=== PATIENT | male | born 1980 | race Caucasian/White ===

== ENCOUNTER 2016-11-19 20:48 | Emergency (ER) | payer BC ==
--- NOTE | 2016-11-19 21:05 | EDDOCDS ---
Physician Documentation [facility] Name: Ana Storm Age: 36 yrs Sex: Male : 1980 Arrival Date: 11/19/2016 Time: 20:48 Bed 2 Private MD: Disposition: 11/19/16 21:04 Patient has left against medical advice. - Patients states they are going to Home/Self Care. - Condition is Stable. Medication Reconciliation, Local Pharmacy Hours form. Follow up: Дмитрий Hall MD; When: As soon as possible; Reason: Worsening of conditions. Historical: - Allergies: No known drug Allergies; - Home Meds: 1. Xanax 1 mg Oral tab Unknown 2. tramadol 50 mg Oral TbDL Unknown - PMHx: Hypertension; Substance Abuse; - PSHx: Appendectomy; - Social history: Smoking status: Patient uses tobacco products, current every day smoker. No barriers to communication noted, The patient speaks fluent [place]. - : The pt / caregiver states he / she is not on anticoagulants. Unable to Verify Home Med List with the patient / caregiver. - Exposure Risk Screening:: None identified. Vital Signs: 11/19 20:59 BP 152 / 98; Pulse 124; Resp 20; Temp 96.4(O); Weight 99.79 kg / 220 lbs (R); Height 5 nb2 ft. 8 in. (172.72 cm) (R); Pain 0/10; 20:59 Body Mass Index 33.45 (99.79 kg, 172.72 cm) nb2 Signatures: Verenice DyerRN RN af2 MTDD
--- NOTE | 2016-11-19 22:04 | EDDOCDS ---
Physician Documentation [facility] Name: Ana Storm Age: 36 yrs Sex: Male : 1980 Arrival Date: 11/19/2016 Time: 20:48 Bed D5 Private MD: Disposition: 11/19/16 21:04 Patient has left against medical advice. Impression: Poisoning by other opioids, accidental (unintentional). - Patients states they are going to Home/Self Care. - Condition is Stable. Medication Reconciliation, Local Pharmacy Hours form. Follow up: Дмитрий Hall MD; When: As soon as possible; Reason: Worsening of conditions. - Problem is new. - Symptoms are unchanged. Historical: - Allergies: No known drug Allergies; - Home Meds: 1. Xanax 1 mg Oral tab Unknown 2. tramadol 50 mg Oral TbDL Unknown - PMHx: Hypertension; Substance Abuse; - PSHx: Appendectomy; - Social history: Smoking status: Patient uses tobacco products, current every day smoker. No barriers to communication noted, The patient speaks fluent Bulgarian. - : The pt / caregiver states he / she is not on anticoagulants. Unable to Verify Home Med List with the patient / caregiver. - Exposure Risk Screening:: None identified. Vital Signs: 11/19 20:59 BP 152 / 98; Pulse 124; Resp 20; Temp 96.4(O); Weight 99.79 kg / 220 lbs (R); Height 5 nb2 ft. 8 in. (172.72 cm) (R); Pain 0/10; 20:59 Body Mass Index 33.45 (99.79 kg, 172.72 cm) nb2 MDM: 21:18 ED course: After examining patient, discussed with patient need for bloodwork, EKG, br1 chest Xray, cardiac monitoring. Patient refuses any further testing, refusing to stay in ED "I didn't even want to come". Explained risks, including and disability to patient. Patient verbalizes understanding. Patient is alert and oriented x 3. He denies SI, depression, or intentional overdose. He is clinically sober. He has signed out against medical advice, was able to hop off stretcher and immediately left the ED prior to receiving formal written discharge instructions. He was verbally directed to see a doctor of his choosing as soon as possible and was invited to return to the ED at any time if he changed his mind.. Signatures: Дмитрий Hall MD MD br1 Miriam Hennessy RN RN sls1 Verenice Dyer RN RN af2 MTDD
--- NOTE | 2016-11-19 22:04 | EDDOCDS ---
Nurse's Notes [facility] Name: Ana Storm Age: 36 yrs Sex: Male : 1980 Arrival Date: 11/19/2016 Time: 20:48 Bed D5 Private MD: Diagnosis: Poisoning by other opioids, accidental (unintentional) Presentation: 11/19 20:51 Presenting complaint: EMS states: pt found unresponsive, rr 4 per min. upon af2 administration of 0.4mg of Narcan administered, pt responsive, A&OX4. pt admits to taking normal home medications, drinking ETOH, and smoking marijuana. Suicide/Homicide risk assessment- the patient denies having any suicidal and/or homicidal ideations and does not present with any other emotional, behavioral or mental health complaints. 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 Transition of care: patient was not received from another setting of care. 20:51 Acuity: JOSE ROBERTO Level 3 af2 20:51 Method Of Arrival: Ambulance af2 Triage Assessment: 20:59 General: Appears in no apparent distress, Behavior is appropriate for age. Pain: Denies af2 pain. Pt Declines HIV testing. Historical: - Allergies: No known drug Allergies; - Home Meds: 1. Xanax 1 mg Oral tab Unknown 2. tramadol 50 mg Oral TbDL Unknown - PMHx: Hypertension; Substance Abuse; - PSHx: Appendectomy; - Social history: Smoking status: Patient uses tobacco products, current every day smoker. No barriers to communication noted, The patient speaks fluent Sinhala. - : The pt / caregiver states he / she is not on anticoagulants. Unable to Verify Home Med List with the patient / caregiver. - Exposure Risk Screening:: None identified. Assessment: 22:00 General: Pt and family in waiting room, pt refusing to be seen, family refusing to take sls1 pt home, spoke with family and pt at length to resolve the situation. Family voiced concerns that pt was not able to make decisions and refusing to take pt home, pt is awake and alert oriented to person place and time, physician felt pt appropriate to make decisions. Pt family refusing to leave with pt, cold mill supervisor called, per cold mill supervisor call PD, PD called and on scene. Social Work Consult: 21:29 LWBS/AMA AMA: Patient is refusing further stabilizing treatment at [facility], although cl offered treatment regardless of method of payment or ability to pay. Patient is aware that this action is being undertaken against the advice of the medical staff at [facility]. Pt. has capacity to understand the potential consequences of this choice. pt did notify ED staff. Patient / guardian did sign Refusal of Services form. Pt left before being seen by PSA. Vital Signs: 20:59 BP 152 / 98; Pulse 124; Resp 20; Temp 96.4(O); Weight 99.79 kg (R); Height 5 ft. 8 in. nb2 (172.72 cm) (R); Pain 0/10; 20:59 Body Mass Index 33.45 (99.79 kg, 172.72 cm) nb2 Vitals: 20:59 Log In Time N/A - ambulance arrival. 2 ED Course: 20:49 Verenice Dyer,RN is Primary Nurse. [facility] 20:49 Patient visited by Maribell Cosme, Eddy Current Inspector. [facility] 20:49 Patient visited by Jose Sharma PSA. cl 20:49 Patient moved to 2 [facility] 20:53 Дмитрий Hall MD is Attending Physician. br1 20:56 Triage Initiated af2 20:59 Patient visited by Stacy Dumont. nb2 20:59 Patient visited by Дмитрий Hall MD. br1 20:59 Placed in gown. Bed in low position. Call light in reach. Side rails up X2. Cardiac nb2 monitor on. Pulse ox on. NIBP on. 21:03 Дмитрий Hall MD is Referral Physician. af2 21:58 Patient moved to D5 [facility] Order Results: There are currently no results for this order. Outcome: 21:00 The patient is leaving AMA: AMA form signed, Notification of AMA status is made to the af2 charge nurse, the ED attending physician. 21:04 Patient left against medical advice. af2 21:04 Patient left the ED. af2 22:02 Patient left the ED. [facility] Signatures: Jose Sharma PSA PSA cl Дмитрий Hall MD MD br1 Miriam Hennessy RN RN sls1 Maribell Cosme, Eddy Current Inspector Unit [facility] Verenice Dyer RN RN af2 Stacy Dumont nb MTDD
[2016-11-20] MEDS ORDERED: [UNRECOGNIZED DRUG - CODE] EXT (00:57)
[2016-11-20] MEDS ORDERED: VITA50003 PO (00:57)
[2016-11-20] MEDS ORDERED: CLOT1CRE71 TOP (00:57)
[2016-11-20] MEDS ORDERED: OMEP20CA3 PO (00:57)
[2016-11-20] MEDS ORDERED: TRAM50TA2 PO (00:57)
[2016-11-20] MEDS ORDERED: XANA1TAB2 PO (00:57)
[2016-11-20] MEDS ORDERED: ADDE5TAB5 PO (00:57)
[2016-11-20] MEDS ORDERED: ADDERALL 5 MG TAB As Ordered ONE (08:54)
[2016-11-20] MEDS ORDERED: OXAZEPAM 10 MG CAP As Ordered ONE (09:41)
[2016-11-21] MEDS ORDERED: OXAZEPAM 10 MG CAP As Ordered ONE (05:34)
[2016-11-21] MEDS ORDERED: HEPARIN SOD (PORCINE) 5000 UNITS/ML VIAL As Ordered ONE (05:35)
--- NOTE | 2016-11-21 23:03 | EDDOCDS ---
Nurse's Notes [facility] Name: Ana Storm Age: 36 yrs Sex: Male : 1980 Arrival Date: 11/19/2016 Time: 20:48 Bed D5 Private MD: Diagnosis: Poisoning by other opioids, accidental (unintentional) Presentation: 11/19 20:51 Presenting complaint: EMS states: pt found unresponsive, rr 4 per min. upon af2 administration of 0.4mg of Narcan administered, pt responsive, A&OX4. pt admits to taking normal home medications, drinking ETOH, and smoking marijuana. Suicide/Homicide risk assessment- the patient denies having any suicidal and/or homicidal ideations and does not present with any other emotional, behavioral or mental health complaints. Status: Patient is not a branch services manager or dependent. Transition of care: patient was not received from another setting of care. 20:51 Acuity: JOSE ROBERTO Level 3 af2 20:51 Method Of Arrival: Ambulance af2 Triage Assessment: 20:59 General: Appears in no apparent distress, Behavior is appropriate for age. Pain: Denies af2 pain. Pt Declines HIV testing. Historical: - Allergies: No known drug Allergies; - Home Meds: 1. Xanax 1 mg Oral tab Unknown 2. tramadol 50 mg Oral TbDL Unknown - PMHx: Hypertension; Substance Abuse; - PSHx: Appendectomy; - Social history: Smoking status: Patient uses tobacco products, current every day smoker. No barriers to communication noted, The patient speaks fluent Faroese. - : The pt / caregiver states he / she is not on anticoagulants. Unable to Verify Home Med List with the patient / caregiver. - Exposure Risk Screening:: None identified. Assessment: 22:00 General: Pt and family in waiting room, pt refusing to be seen, family refusing to take sls1 pt home, spoke with family and pt at length to resolve the situation. Family voiced concerns that pt was not able to make decisions and refusing to take pt home, pt is awake and alert oriented to person place and time, physician felt pt appropriate to make decisions. Pt family refusing to leave with pt, supervisor sample preparation called, per supervisor sample preparation call PD, PD called and on scene. Social Work Consult: 21:29 LWBS/AMA AMA: Patient is refusing further stabilizing treatment at [facility], although cl offered treatment regardless of method of payment or ability to pay. Patient is aware that this action is being undertaken against the advice of the medical staff at [facility]. Pt. has capacity to understand the potential consequences of this choice. pt did notify ED staff. Patient / guardian did sign Refusal of Services form. Pt left before being seen by PSA. Vital Signs: 20:59 BP 152 / 98; Pulse 124; Resp 20; Temp 96.4(O); Weight 99.79 kg (R); Height 5 ft. 8 in. nb2 (172.72 cm) (R); Pain 0/10; 20:59 Body Mass Index 33.45 (99.79 kg, 172.72 cm) nb2 Vitals: 20:59 Log In Time N/A - ambulance arrival. 2 ED Course: 20:49 Verenice Dyer,RN is Primary Nurse. [facility] 20:49 Patient visited by Maribell Cosme, Gambreler Helper. [facility] 20:49 Patient visited by Jose Sharma PSA. cl 20:49 Patient moved to [facility] 20:53 Дмитрий Hall MD is Attending Physician. br1 20:56 Triage Initiated af2 20:59 Patient visited by Stacy Dumont. nb2 20:59 Patient visited by Дмитрий Hall MD. br1 20:59 Placed in gown. Bed in low position. Call light in reach. Side rails up X2. Cardiac nb2 monitor on. Pulse ox on. NIBP on. 21:03 Дмитрий Hall MD is Referral Physician. af2 21:58 Patient moved to [facility] 11/20 09:46 T-Sheet-- Draft Copy was scanned into [employer] and attached to record. gb 09:47 Refusal of Services was scanned into [employer] and attached to record. gb Attachments: 09:47 Refusal of Services gb Order Results: There are currently no results for this order. Outcome: 11/19 21:00 The patient is leaving AMA: AMA form signed, Notification of AMA status is made to the af2 charge nurse, the ED attending physician. 21:04 Patient left against medical advice. af2 21:04 Patient left the ED. af2 22:02 Patient left the ED. [facility] Signatures: Jose Sharma PSA PSA cl Massiel Chery Reg Reg gb Дмитрий Hall MD MD br1 Miriam Hennessy RN RN sls1 Maribell Cosme, Gambreler Helper Unit Verenice Burns RN RN af2 Stacy Dumont nb2 Chart Complete MTDD
--- NOTE | 2016-11-21 23:03 | EDDOCDS ---
Physician Documentation [facility] Name: Ana Storm Age: 36 yrs Sex: Male : 1980 Arrival Date: 11/19/2016 Time: 20:48 Bed D5 Private MD: Disposition: 11/19/16 21:04 Patient has left against medical advice. Impression: Poisoning by other opioids, accidental (unintentional). - Patients states they are going to Home/Self Care. - Condition is Stable. Medication Reconciliation, Local Pharmacy Hours form. Follow up: Дмитрий Hall MD; When: As soon as possible; Reason: Worsening of conditions. - Problem is new. - Symptoms are unchanged. Historical: - Allergies: No known drug Allergies; - Home Meds: 1. Xanax 1 mg Oral tab Unknown 2. tramadol 50 mg Oral TbDL Unknown - PMHx: Hypertension; Substance Abuse; - PSHx: Appendectomy; - Social history: Smoking status: Patient uses tobacco products, current every day smoker. No barriers to communication noted, The patient speaks fluent [place]ese. - : The pt / caregiver states he / she is not on anticoagulants. Unable to Verify Home Med List with the patient / caregiver. - Exposure Risk Screening:: None identified. Vital Signs: 11/19 20:59 BP 152 / 98; Pulse 124; Resp 20; Temp 96.4(O); Weight 99.79 kg / 220 lbs (R); Height 5 nb2 ft. 8 in. (172.72 cm) (R); Pain 0/10; 20:59 Body Mass Index 33.45 (99.79 kg, 172.72 cm) nb2 MDM: 21:18 ED course: After examining patient, discussed with patient need for bloodwork, EKG, br1 chest Xray, cardiac monitoring. Patient refuses any further testing, refusing to stay in ED "I didn't even want to come". Explained risks, including and disability to patient. Patient verbalizes understanding. Patient is alert and oriented x 3. He denies SI, depression, or intentional overdose. He is clinically sober. He has signed out against medical advice, was able to hop off stretcher and immediately left the ED prior to receiving formal written discharge instructions. He was verbally directed to see a doctor of his choosing as soon as possible and was invited to return to the ED at any time if he changed his mind.. 11/20 09:46 T-Sheet-- Draft Copy was scanned into [employer] and attached to record. gb 09:47 Refusal of Services was scanned into [employer] and attached to record. gb Signatures: Massiel Chery, Reg Reg gb Дмитрий Hall MD MD br1 Miriam Hennessy RN RN sls1 Verenice Dyer RN RN af2 The chart was reviewed and I authenticate all verbal orders and agree with the evaluation and treatment provided.Attachments: 09:46 T-Sheet-- Draft Copy gb Chart Complete MTDD
--- NOTE | 2016-11-21 23:03 | EDDOCDS ---
Physician Documentation [facility] Name: Ana Storm Age: 36 yrs Sex: Male : 1980 Arrival Date: 11/19/2016 Time: 20:48 Bed D5 Private MD: Disposition: 11/19/16 21:04 Patient has left against medical advice. Impression: Poisoning by other opioids, accidental (unintentional). - Patients states they are going to Home/Self Care. - Condition is Stable. Medication Reconciliation, Local Pharmacy Hours form. Follow up: Дмитрий Hall MD; When: As soon as possible; Reason: Worsening of conditions. - Problem is new. - Symptoms are unchanged. Historical: - Allergies: No known drug Allergies; - Home Meds: 1. Xanax 1 mg Oral tab Unknown 2. tramadol 50 mg Oral TbDL Unknown - PMHx: Hypertension; Substance Abuse; - PSHx: Appendectomy; - Social history: Smoking status: Patient uses tobacco products, current every day smoker. No barriers to communication noted, The patient speaks fluent Austrian. - : The pt / caregiver states he / she is not on anticoagulants. Unable to Verify Home Med List with the patient / caregiver. - Exposure Risk Screening:: None identified. Vital Signs: 11/19 20:59 BP 152 / 98; Pulse 124; Resp 20; Temp 96.4(O); Weight 99.79 kg / 220 lbs (R); Height 5 nb2 ft. 8 in. (172.72 cm) (R); Pain 0/10; 20:59 Body Mass Index 33.45 (99.79 kg, 172.72 cm) nb2 MDM: 21:18 ED course: After examining patient, discussed with patient need for bloodwork, EKG, br1 chest Xray, cardiac monitoring. Patient refuses any further testing, refusing to stay in ED "I didn't even want to come". Explained risks, including and disability to patient. Patient verbalizes understanding. Patient is alert and oriented x 3. He denies SI, depression, or intentional overdose. He is clinically sober. He has signed out against medical advice, was able to hop off stretcher and immediately left the ED prior to receiving formal written discharge instructions. He was verbally directed to see a doctor of his choosing as soon as possible and was invited to return to the ED at any time if he changed his mind.. 11/20 09:46 T-Sheet-- Draft Copy was scanned into [employer] and attached to record. gb 09:47 Refusal of Services was scanned into [employer] and attached to record. gb Signatures: Massiel Chery, Reg Reg gb Дмитрий Hall MD MD br1 Miriam Hennessy RN RN sls1 Verenice Dyer RN RN af2 The chart was reviewed and I authenticate all verbal orders and agree with the evaluation and treatment provided.Attachments: 09:46 T-Sheet-- Draft Copy gb Chart Complete MTDD
== END 2016-11-19 21:00 | disposition left against medical advice (07) ==
LOC: M ED 20:48
DX: T40.2X1A Poisoning by other opioids, accidental (unintentional), initial encounter (principal); X58.XXXA Exposure to other specified factors, initial encounter; Y92.89 Other specified places as the place of occurrence of the external cause; Y93.89 Activity, other specified; Y99.8 Other external cause status; I10 Essential (primary) hypertension; F19.10 Other psychoactive substance abuse, uncomplicated; Z79.899 Other long term (current) drug therapy; F17.210 Nicotine dependence, cigarettes, uncomplicated

== ENCOUNTER 2016-11-19 22:13 | Inpatient (IN) | payer BC ==
[~2016-11-19] VITALS: Ht 172.7 cm; Wt 96.7 kg
[2016-11-19] MEDS: ADDERALL 5 MG TAB PO SCH (21:00)
[2016-11-19 23:03] LABS: ABG BASE EXCESS -1.4 (-2.0-2.0); ABG DEVICE NASAL CANN; ABG HCO3 25.1 MEQ/L (22.0-26.0); ABG PARTIAL PRESSURE CO2 48.9 mmHg (35.0-45.0); ABG PARTIAL PRESSURE O2 74.9 mmHg (75.0-100.0); ABG STANDARD HCO3 23.2 MEQ/L (22.0-26.0); ABG TOTAL CO2 26.6 MEQ/L (22.0-29.0); ABG pH (ARTERIAL) 7.328 UNITS (7.350-7.450)
[2016-11-19 23:29] LABS: MEAN CORPUSCULAR HEMOGLOBIN 30.4 pg (27.0-33.0); MEAN CORPUSCULAR HGB CONC 31.7 g/dl (32.0-36.5); MEAN CORPUSCULAR VOLUME 95.9 fl (80.0-96.0); PLATELET COUNT, AUTOMATED 360 k/mm3 (150-450); RED CELL DISTRIBUTION WIDTH 12.6 % (11.5-14.5); WHITE BLOOD COUNT 8.1 K/mm3 (4.0-10.0)
[2016-11-19 23:39] LABS: BANDS 2 % (< 11); BASOPHILS 1 % (0-4); EOSINOPHILS 1 % (0-5)
[2016-11-19 23:40] LABS: ALBUMIN 4.6 GM/DL (3.2-5.2); ALBUMIN/GLOBULIN RATIO 1.24 (1.00-1.93); ALKALINE PHOSPHATASE 78 U/L (45-117); ALT/SGPT 59 U/L (12-78); ANION GAP 7 MEQ/L (8-16); AST/SGOT 37 U/L (15-37); BILIRUBIN,DIRECT < 0.1 MG/DL (0.0-0.2); BILIRUBIN,TOTAL 0.4 MG/DL (0.2-1.0); BLOOD UREA NITROGEN 17 MG/DL (7-18); CALCIUM LEVEL 8.9 MG/DL (8.5-10.1); CARBON DIOXIDE LEVEL 30 MEQ/L (21-32); CHLORIDE LEVEL 103 MEQ/L (98-107); CREATININE FOR GFR 1.75 MG/DL (0.70-1.30); GLOMERULAR FILTRATION RATE 47.5 (>60); GLUCOSE, FASTING 96 MG/DL (70-105); PLATELET CLUMPS SMALL AMT; POTASSIUM SERUM 4.4 MEQ/L (3.5-5.1); SODIUM LEVEL 140 MEQ/L (136-145); TOTAL PROTEIN 8.3 GM/DL (6.4-8.2)
[2016-11-20] MEDS ORDERED: METOPROLOL TART 50 MG TAB As Ordered ONE (00:04)
[2016-11-20] MEDS ORDERED: ONDANSETRON 4MG/2ML VIAL (J2405) As Ordered ONE (00:04)
[2016-11-20 00:20] LABS: T UPTAKE 32 % (33-40); THYROXINE (T4) 8.7 UG/DL (4.5-12.0)
[2016-11-20] MEDS ORDERED: CEFUROXIME INJ 750 MG VIAL (J0697) As Ordered ONE (00:47)
[2016-11-20] MEDS ORDERED: ADDE5TAB5 PO (00:57)
[2016-11-20] MEDS ORDERED: OMEP20CA3 PO (00:57)
[2016-11-20] MEDS ORDERED: TRAM50TA2 PO (00:57)
[2016-11-20] MEDS ORDERED: [UNRECOGNIZED DRUG - CODE] EXT (00:57)
[2016-11-20] MEDS ORDERED: CLOT1CRE71 TOP (00:57)
[2016-11-20] MEDS ORDERED: VITA50003 PO (00:57)
[2016-11-20] MEDS ORDERED: XANA1TAB2 PO (00:57)
[2016-11-20] MEDS ORDERED: ONDANSETRON 4MG/2ML VIAL (J2405) IV PRN (01:00)
[2016-11-20] MEDS ORDERED: LOTRISONE CREAM 15 GM (BETAMETH/CLOTRIMAZOLE) TOP PRN (01:15)
[2016-11-20] MEDS ORDERED: FOLIC ACID 1 MG in NS 50 ML IV ONE (01:30)
[2016-11-20] MEDS ORDERED: MVI -ADULT INJECTION 10 ML VIAL IV ONE (01:30)
[2016-11-20] MEDS ORDERED: THIAMINE HCL 200 MG/2 ML VIAL (J3411) IV ONE (01:30)
--- NOTE | 2016-11-20 01:38 | HPEPDOC ---
Medical History and Physical Date of Admission Nov 20, 2016 at 00:24 History and Physical PRIMARY CARE PROVIDER: Dr. Clark CHIEF COMPLAINT: Not feeling well HISTORY OF PRESENT ILLNESS: Obtained from patient's Patient is a 36-year-old male who presented to the emergency department initially yesterday evening after being found at 8:10 PM unconscious and barely breathing by his . Patient's said that he had vomited and she called the ambulance. EMS found the patient, he did not have a pulse and was not breathing at that time. They gave him Narcan. Patient's says that yesterday evening he took 3-4 Xanax, 4 tramadol and drinks 2 beers. After initially being evaluated in emergency department patient refused treatment and left AMA. Before physically leaving the hospital the patient's family convinced him to stay and patient came back in to emergency department. He is complaining of not feeling well, complaining of sinus pain and pressure and chest congestion. ALLERGIES: None PAST MEDICAL HISTORY: Hypertension, substance abuse, ADHD, GERD PAST SURGICAL HISTORY: Appendectomy, left hand surgery, arthroscopic right knee surgery SOCIAL HISTORY: Patient occasionally smokes cigars. Smokes marijuana on a daily basis. Drinks 3- 4 beers per night. 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 He lives at home with his and son. FAMILY HISTORY: reports being sick with upper respiratory infection, sinus infection and possibly influenza CODE STATUS: Full code REVIEW OF SYSTEMS: Constitutional: denies fevers, chills, night sweats, recent weight gain/loss HEENT: Head: Positive for headache. Eyes: denies blurry vision, double vision. Ears: denies hearing loss, tinnitus, ear pain. Nose: denies sinus pain, pressure , rhinorrhea, postnasal drip. Throat: Positive for sore throat, cough, dysphagia Cardiovascular: denies chest discomfort/pain, palpitations Respiratory: Positive for difficulty breathing Gastrointestinal: Positive for vomiting, denies nausea, diarrhea, constipation, abdominal pain : denies dysuria, hematuria Musculoskeletal: denies muscle / joint stiffness, pain, swelling Neurological: denies numbness, tingling, paresthesias Lymphatics: denies palpable lymph nodes or swollen glands Integumentary: denies any cuts, rashes, bruises PHYSICAL EXAMINATION: Vitals: Temperature 100.9, pulse 124, respiratory rate 18, blood pressure 167/92 , pulse ox 99% on 6 L nasal cannula General: Patient somnolent but easily arousable. Verbal and able to answer questions appropriately HEENT: Head: normocephalic, atraumatic. Eyes: pupils equally reactive to light , conjunctiva are pink, sclera are nonicteric. Throat: buccal mucosa is pink and moist with no lesions in the oropharynx Respiratory: Bilateral transmitted upper airway sounds, unable to appreciate any adventitious lung sounds Cardiovascular: Tachycardic, irregularly irregular rate and rhythm. No murmurs, rubs, clicks or gallops Abdomen: soft, nontender, nondistended, no hepatosplenomegaly appreciated. Bowel sounds present. Extremities: 5/5 strength in upper and lower extremities bilaterally, no swelling in either lower extremity bilaterally Neurological: sensation intact and symmetrical in upper and lower extremities bilaterally Integumentary: skin free from rashes, lesions, abrasions Vascular: pulses palpable and symmetrical in upper and lower extremities bilaterally LABORATORY DATA: CBC: White blood cells 8.1, H&H 14.9/46.8, platelets 360 Chemistry: Sodium 140, potassium 4.4, chloride 103, carbon dioxide 30, BUN 17, creatinine 1.7 (baseline 1.0), glucose 96, calcium 8.9 Liver profile: AST 37, ALT 59, alkaline phosphatase 78, albumin 4.6, total protein 8.3, total bilirubin 0.4, direct bilirubin less than 0.1 Thyroid profile: TSH 1.570, free T4 2 0.8, thyroxine 8.7, T3 uptake 32 Toxicology: Salicylates less than 1.7, acetaminophen less than 2, ethanol 0.007 MICROBOIOLOGY: Blood culture 1 pending Influenza A and B negative Respiratory panel pending ELECTROCARDIOGRAM: Atrial fibrillation at rate of 133 bpm RADIOLOGY: Chest x-ray as interpreted by myself: Positive right lower lobe infiltrate ASSESSMENT: Patient is a 36-year-old male with recent episode of unconsciousness, vomiting, infiltrate on chest x-ray and new onset atrial fibrillation. Patient will require admission for further evaluation, monitoring, treatment. PLAN: #1: New onset atrial fibrillation: Admit patient to PCU under care of Dr. Garnica. Order placed for echocardiogram, cardiac markers every 8 hours 3 #2: Right lower lobe infiltrate: Order placed for Levaquin 750 mg IV every 24 hours, order for respiratory panel placed. If patient is influenza positive: order will be placed for Tamiflu. Orders placed for daily CBC, BMP. Normal saline at rate of 125 mL/hr. Tylenol 650 mg by mouth every 4 hours when necessary for pain or fever. Zofran 4 mg IV every 6 hours when necessary #3: Alcohol abuse: Orders placed for one-time dose of thiamine, folic acid, multivitamin. Lorazepam 1 mg every 2 hours when necessary for anxiety/agitation #4: ADHD: Order placed for home dose of Adderall 20 mg by mouth twice a day #5: GERD: Order placed for home dose of omeprazole 20 mg by mouth daily #7: Episode of unconsciousness: At this time we will hold Xanax and tramadol. Remainder of ED tox screen pending. #7: Acute kidney injury: Likely secondary to lower respiratory tract infection, order placed for normal saline at rate of 125 mL/hr #8: DVT prophylaxis order placed for heparin 5000 units subcutaneously every 8 hours My preceptor for this patient encounter was physically present in the building during the encounter and was fully available. As needed, all aspects of the patient interview, examination, medical decision making process, and medical care plan development were reviewed and approved by the preceptor. Preceptor is aware and concurs with the plan as stated in the body of this note and will attest to such by his/her cosignature. Attending Note: I have independently examined this patient and all aspects of the exam and treatment decisions have been discussed with the resident. A member of the hospitalist staff will continue to follow this patient through discharge. Vital Signs Temperature 100.9, pulse 124, respiratory rate 18, blood pressure 167/92, pulse ox 99% on 6 L nasal cannula Home Medications Scheduled Alprazolam (Xanax) 1 Mg Tab 1 MG PO QID Amphetamine/Dextroamphetamine (Adderall 5 mg) 1 Tab Tab 20 MG PO BID Ergocalciferol (Vitamin D) 50,000 Unit Cap 50,000 UNIT PO 1XWK WEDNESDAY MORNINGS Omeprazole (Omeprazole) 20 Mg Cap 20 MG PO DAILY Scheduled PRN (Exelderm) 1 % Cre 1 DOSE EXT BID PRN PRN ITCHING PLACES ON GROIN Betamethasone/Clotrimazole (Clotrimazole/Betamethason 1-0.05 %) 1 Dose/15 Gm Cream 1 DOSE TOP BID PRN PRN ITCHING PLACES ON GROIN Tramadol HCl (Tramadol HCl) 50 Mg Tab 50 MG PO QID PRN PRN PAIN Allergies Coded Allergies: No Known Allergies (Verified Allergy, Unknown, 07/18/08) AMIE PELAYO DO Nov 20, 2016 01:38 RUPERT NGO DO Nov 20, 2016 05:13
[2016-11-20] MEDS ORDERED: MULTIVITAMIN -ADULT INJECTION 10 ML, THIAMINE INJection 100 MG, FOLIC ACID 1 MG in NS 1... IV SCH (02:00)
[2016-11-20] MEDS ORDERED: ACETAMINOPHEN 325 MG TAB As Ordered ONE ×2 (02:11→12:18)
[2016-11-20] MEDS ORDERED: AZITHROMYCIN INJ 500MG VIAL (J0456) As Ordered ONE (02:12)
[2016-11-20] MEDS: LevoFLOXacin IV 750 MG in APPROPRIATE DILUENT 1 EA IV SCH (03:00)
[2016-11-20] MEDS ORDERED: LevoFLOXacin/DEXTROSE 750 MG/150 ML BAG (J1956) As Ordered ONE (05:06)
[2016-11-20] MEDS: HEPARIN SOD (PORCINE) 5000 UNITS/ML VIAL SC SCH ×3 (06:00→22:43)
[2016-11-20 06:24] LABS: MEAN CORPUSCULAR HEMOGLOBIN 31.2 pg (27.0-33.0); MEAN CORPUSCULAR HGB CONC 32.1 g/dl (32.0-36.5); MEAN CORPUSCULAR VOLUME 97.3 fl (80.0-96.0); RED CELL DISTRIBUTION WIDTH 12.7 % (11.5-14.5); WHITE BLOOD COUNT 13.1 K/mm3 (4.0-10.0)
[2016-11-20 06:37] LABS: ANION GAP 7 MEQ/L (8-16); BLOOD UREA NITROGEN 15 MG/DL (7-18); CALCIUM LEVEL 8.3 MG/DL (8.5-10.1); CARBON DIOXIDE LEVEL 29 MEQ/L (21-32); CHLORIDE LEVEL 104 MEQ/L (98-107); CREATININE FOR GFR 1.32 MG/DL (0.70-1.30); GLOMERULAR FILTRATION RATE > 60.0 (>60); GLUCOSE, FASTING 117 MG/DL (70-105); POTASSIUM SERUM 4.7 MEQ/L (3.5-5.1); SODIUM LEVEL 140 MEQ/L (136-145)
[2016-11-20] MEDS ORDERED: HEPARIN SOD (PORCINE) 5000 UNITS/ML VIAL As Ordered ONE ×3 (06:50→22:34)
--- NOTE | 2016-11-20 07:52 | REP ---
Clinical: Cough. Technique: PA and lateral. Findings: Bilateral lower lobe infiltrates compatible with acute pneumonia. No effusion. No pneumothorax. Cardiac silhouette normal. Skeletal structures intact. Impression: Lower lobe infiltrates compatible with acute pneumonia. Signed by Cristo Nance MD 11/20/2016 07:43 A
[2016-11-20] MEDS: ADDERALL 5 MG TAB PO SCH ×2 (09:00→21:25)
[2016-11-20] MEDS: OMEPRAZOLE 20 MG CAP PO SCH (09:00)
[2016-11-20] MEDS: NS 1,000 ML IV SCH ×3 (09:00→21:25)
[2016-11-20] MEDS ORDERED: SODIUM CHLORIDE 0.9% 1000 ML IV ONE (09:30)
[2016-11-20] MEDS ORDERED: LORazepam 2 MG/ML VIAL (J2060) As Ordered ONE ×3 (12:11→22:31)
[2016-11-20 12:28] LABS: AMPHETAMINES LEVEL URINE POSITIVE (NEGATIVE); BENZODIAZEPINES URINE POSITIVE (NEGATIVE); COCAINE METABOLITE URINE NEGATIVE (NEGATIVE); CONTROL LINE INT CTR LINE PRESENT; METHADONE URINE NEGATIVE (NEGATIVE); OPIATES URINE POSITIVE (NEGATIVE); TRICYCLIC ANTIDEPRESS URINE NEGATIVE (NEGATIVE)
[2016-11-20] MEDS ORDERED: OXAZEPAM 10 MG CAP As Ordered ONE ×2 (15:37→22:34)
[2016-11-20 15:42] VITALS: BP 137/56
[2016-11-20] MEDS: OXAZEPAM 10 MG CAP PO SCH ×2 (15:45→22:44)
[2016-11-20] MEDS ORDERED: IBUPROFEN 400 MG TAB As Ordered ONE (16:24)
[2016-11-20] MEDS: IBUPROFEN 400 MG TAB PO PRN (16:28)
[2016-11-20 17:23] VITALS: BP 140/86
[2016-11-20] MEDS ORDERED: ACETAMINOPHEN TAB 650MG DOSE (2X325MG) As Ordered ONE (17:27)
[2016-11-20] MEDS: ACETAMINOPHEN TAB 650MG DOSE (2X325MG) PO PRN (17:31)
[2016-11-20] MEDS: LORazepam 2 MG/ML VIAL (J2060) IV PRN ×2 (17:38→22:44)
--- NOTE | 2016-11-20 19:50 | ECGEPIP ---
Stationary ECG Study [facility] - ED Test Date: 2016-11-19 Pat Name: ALETA SEAMAN Department: Room: [place] [address] Gender: M Mirror Silverer: wes : 1980 Requested By: KRISTY THURMAN Order Number: [id number] Reading MD: Sasha Pretty Measurements Intervals [place] Rate: 135 P: DC: 0 QRS: 37 QRSD: 87 T: 6 QT: 287 QTc: 431 Interpretive Statements ATRIAL FIBRILLATION WITH RAPID VENTRICULAR RESPONSE NONSPECIFIC T-WAVE ABNORMALITY ABNORMAL RHYTHM ECG PRIOR SINUS BRADYCARDIA 10/17/15 Electronically Signed On 11-20-2016 19:49:57 EST by Sasha Pretty
[2016-11-20 19:58] VITALS: BP 141/69
--- NOTE | 2016-11-20 21:04 | IPN ---
DATE: 11/20/2016 SUBJECTIVE: This is a 36-year-old with community-acquired pneumonia and coronavirus. He is tachycardic, somewhat uncomfortable, complaining of muscle aches and pains. OBJECTIVE: VITAL SIGNS: He continues to be febrile intermittently with temperature of 101.4 this afternoon, and tachycardic with a pulse of 133, respiratory rate 20, blood pressure 137/56, 95% on room air. Intake and output notable for a negative fluid balance of minus 500. GENERAL: He is awake, appropriately interactive. Appears uncomfortable. LUNGS: Breathing is symmetrical, diminished, with coarse upper airway sounds. No wheezes. HEART: Tachycardic and irregular, in atrial fibrillation on the monitor. ABDOMEN: Soft, doughy, nontender. LABORATORY DATA: White cell count is 13.1, hemoglobin 14.4, platelets of 330. BUN 15, creatinine 1.13. ASSESSMENT: This is a 36-year-old with coronavirus and community-acquired pneumonia. PLAN: 1. Infectious disease. The patient has right lower lobe pneumonia. Is on quinolone with coronavirus. Will continue to monitor clinically and wait for culture results. 2. The patient has new-onset atrial fibrillation. This is made worse in the setting of fever and possible negative fluid status. Will give intravenous drip. 3. He has a history or polysubstance abuse. Will be placed on Serax scheduled and as needed, as well as thiamine, folic acid and multivitamin. 4. Patient has acute renal failure. 5. The patient has appropriate deep venous thrombosis (DVT) prophylaxis.
[2016-11-21] VITALS (8 sets, daily range): BP systolic 127–160; BP diastolic 64–88
[2016-11-21] MEDS ORDERED: IBUPROFEN 400 MG TAB As Ordered ONE ×2 (00:01→09:37)
[2016-11-21] MEDS: IBUPROFEN 400 MG TAB PO PRN ×3 (00:52→18:44)
[2016-11-21] MEDS ORDERED: LevoFLOXacin/DEXTROSE 750 MG/150 ML BAG (J1956) As Ordered ONE (03:26)
[2016-11-21] MEDS: LevoFLOXacin IV 750 MG in APPROPRIATE DILUENT 1 EA IV SCH (04:00)
[2016-11-21] MEDS: HEPARIN SOD (PORCINE) 5000 UNITS/ML VIAL SC SCH ×3 (05:57→20:16)
[2016-11-21] MEDS: OXAZEPAM 10 MG CAP PO SCH ×3 (05:57→20:15)
[2016-11-21] MEDS: NS 1,000 ML IV SCH ×3 (06:34→20:16)
[2016-11-21] MEDS ORDERED: LORazepam 2 MG/ML VIAL (J2060) As Ordered ONE ×3 (06:45→16:15)
[2016-11-21] MEDS: LORazepam 2 MG/ML VIAL (J2060) IV PRN ×5 (06:54→23:13)
[2016-11-21 07:00] LABS: MEAN CORPUSCULAR HEMOGLOBIN 30.6 pg (27.0-33.0); MEAN CORPUSCULAR HGB CONC 32.3 g/dl (32.0-36.5); MEAN CORPUSCULAR VOLUME 94.9 fl (80.0-96.0); RED CELL DISTRIBUTION WIDTH 12.6 % (11.5-14.5)
[2016-11-21 07:17] LABS: ANION GAP 8 MEQ/L (8-16); BLOOD UREA NITROGEN 8 MG/DL (7-18); CALCIUM LEVEL 8.7 MG/DL (8.5-10.1); CARBON DIOXIDE LEVEL 27 MEQ/L (21-32); CHLORIDE LEVEL 107 MEQ/L (98-107); CREATININE FOR GFR 0.84 MG/DL (0.70-1.30); GLOMERULAR FILTRATION RATE > 60.0 (>60); GLUCOSE, FASTING 93 MG/DL (70-105); POTASSIUM SERUM 3.9 MEQ/L (3.5-5.1); SODIUM LEVEL 142 MEQ/L (136-145)
--- NOTE | 2016-11-21 08:48 | ECHO ---
DATE OF PROCEDURE: 11/20/2016 AGE: 36 GENDER: Male HEIGHT: 67 inches WEIGHT: 220 pounds BODY SURFACE AREA: 2.11 sq m Inpatient, currently in the emergency room. INDICATION: Abnormal EKG. Atrial fibrillation. REFERRING PHYSICIAN: Dr. Guillen MEASUREMENTS: 2D MEASUREMENTS: RV: 4.2 cm LV: 4.3 cm Septum: 1.3 cm Posterior wall: 1.2 cm Aortic root: 3.4 cm LA: 4.0 cm LVEF: 65% DOPPLER MEASUREMENTS: AV: 1.2 m/s LVOT: 0.94 m/s LVOT diameter: 2.1 cm MV-E: 85 Early mitral deceleration time: 222 ms E prime: 12 E/E prime ratio: 7 PV: 0.8 m/s Pulmonary artery acceleration time: 74 ms PASP: 46 mmHg IVC: 2.1 cm COMMENTS: Underlying atrial fibrillation with somewhat rapid ventricular response averaging 110 beats per minute (BPM). A technically challenging study in light of the patient's body habitus, but diagnostically useful information was still obtained. Mildly dilated left atrium, but normal left ventricular size. Right heart chamber sizes were borderline increased. Left ventricular (LV) wall thickness was upper limits of normal to mildly hypertrophied symmetrically. On real-time imaging from the parasternal and apical projections, wall motion was symmetrical and normal. Normal-appearing mitral valvular apparatus and leaflet excursion with no posterior systolic buckling. Three equal size aortic cusps of normal thickness and cusp separation. Normal aortic root size. No apparent intracardiac mass or pericardial effusion. Color flow Doppler study taken from the parasternal and apical projections showed trace mitral and tricuspid and no aortic insufficiency (physiological findings). Guided continuous wave Doppler of his aortic valve showed a normal peak systolic velocity against LV outflow tract obstruction. Pulsed continuous wave Doppler of his LV inflow tract taken from the apical four-chamber projection showed normal diastolic filling velocities against mitral stenosis. There was only early diastolic/passive filling as we would expect with atrial fibrillation. Slightly prolonged early mitral deceleration time suggestive of an impairment of LV diastolic relaxation, but currently normal estimated mean left atrial pressure. Pulsed and continuous wave Doppler of his pulmonary trunk showed a normal peak systolic velocity against RV outflow tract obstruction. His pulmonary artery acceleration time, however, was abbreviated consistent with an elevated pulmonary vascular resistance and perhaps mild to moderate pulmonary hypertension. We attempted to further estimate his right ventricular systolic pressure using guided continuous wave Doppler of his tricuspid valve but could not get a clear spectral envelope. CONCLUSIONS: Technically challenging study in light of the patient's body habitus. Borderline concentric left ventricle hypertrophy with preserved systolic function. Mildly dilated left atrium with sign of impaired left ventricular (LV) diastolic relaxation, but currently normal estimated mean left atrial pressure. Borderline enlarged right heart chambers with Doppler evidence of moderate pulmonary hypertension. Slightly dilated inferior vena cava with slight reduction in respiratory collapse suggestive of an elevated central venous pressure of 10-15 mmHg.
[2016-11-21] MEDS ORDERED: SODIUM CHLORIDE 0.9% 1000 ML IV ONE (09:00)
[2016-11-21] MEDS ORDERED: OMEPRAZOLE 20 MG CAP As Ordered ONE (09:26)
[2016-11-21] MEDS ORDERED: ADDERALL 5 MG TAB As Ordered ONE (09:27)
[2016-11-21] MEDS ORDERED: OXAZEPAM 10 MG CAP As Ordered ONE ×2 (09:27→15:22)
[2016-11-21] MEDS: OMEPRAZOLE 20 MG CAP PO SCH (09:28)
[2016-11-21] MEDS: ADDERALL 5 MG TAB PO SCH ×2 (09:28→20:15)
[2016-11-21] MEDS: OXAZEPAM 10 MG CAP PO PRN (09:28)
[2016-11-21] MEDS: ASPIRIN 81 MG ENTERIC TAB PO SCH (09:29)
[2016-11-21] MEDS ORDERED: HEPARIN SOD (PORCINE) 5000 UNITS/ML VIAL As Ordered ONE (15:22)
[2016-11-21] MEDS ORDERED: ACETAMINOPHEN TAB 650MG DOSE (2X325MG) As Ordered ONE (16:16)
[2016-11-21] MEDS: ACETAMINOPHEN TAB 650MG DOSE (2X325MG) PO PRN (16:18)
--- NOTE | 2016-11-21 18:13 | EDDOCDS ---
Physician Documentation Name: Ana Storm Age: 36 yrs Sex: Male : 1980 Arrival Date: 11/19/2016 Time: 22:13 Bed Admit Hold Private MD: Disposition: 11/20/16 00:15 Hospitalization ordered by Severo Melo for Inpatient Admission. Preliminary diagnosis are Pneumonia in diseases classified elsewhere, Hypoxemia, Other psychoactive substance abuse. - Bed requested for PCU. - Status is Inpatient Admission. [facility] - Condition is Stable. - Problem is an ongoing problem. - Symptoms have improved. Historical: - Allergies: no known allergies; - Home Meds: 1. tramadol 50 mg Oral TbDL Unknown four times a day 2. Xanax 1 mg Oral tab Unknown four times a day 3. Prilosec 20 mg Oral cpDR 1 cap once daily (Last dose: 11/19/2016) 4. Adderall XR 20 mg Oral cp24 1 cap twice a day (Last dose: 11/19/2016) - PMHx: Hypertension; Substance Abuse; - PSHx: Appendectomy; - Social history: Smoking status: Patient uses tobacco products, current some day smoker. Patient uses street drugs, marijuana, No barriers to communication noted, The patient speaks fluent [place], Speaks appropriately for age. - Family history: Not pertinent. - : The pt / caregiver states he / she is not on anticoagulants. Home medication list is obtained from the patient. - Exposure Risk Screening:: None identified. Vital Signs: 11/19 22:25 Pulse Ox 79% on R/A; af2 22:26 BP 167 / 86; Pulse 98; Resp 18; Temp 97.8(O); Weight 99.79 kg / 220 lbs; Height 5 ft. 7 ck1 in. (170.18 cm); 22:30 BP 147 / 70 (auto/); af2 22:31 Pulse Ox 100% ; af2 22:35 BP 158 / 88 (auto/); af2 22:35 Pulse 142 MON; Pulse Ox 81% ; af2 22:46 Pulse Ox 94% on 6 lpm NC; af2 22:46 Pulse 129; af2 23:00 BP 160 / 75 (auto/); af2 23:00 Pulse 133 MON; Pulse Ox 97% ; af2 23:30 BP 178 / 94 (auto/); af2 23:30 Pulse 143 MON; Resp 18 S; Pulse Ox 92% on 6 lpm NC; af2 0217 00:00 BP 167 / 92 (auto/); af2 00:00 Pulse 124 MON; Resp 18 S; Pulse Ox 99% on 6 lpm NC; af2 00:29 Pulse 135 MON; af2 00:30 BP 177 / 102 (auto/); af2 00:43 BP 177 / 102; Pulse 144; Resp 18 S; Temp 100.9(TE); Pulse Ox 100% on 6 lpm NC; af2 01:30 BP 192 / 101 (auto/); af2 01:30 Pulse 133 MON; Resp 18 S; Pulse Ox 99% on 4 lpm NC; af2 02:00 BP 198 / 87 (auto/); af2 02:00 Pulse 149 MON; Resp 18 S; Pulse Ox 97% on 4 lpm NC; af2 02:17 BP 168 / 88 (auto/); af2 02:17 Pulse 144 MON; Resp 18 S; Pulse Ox 99% on 4 lpm NC; af2 02:30 BP 165 / 89 (auto/); af2 02:30 Pulse 129 MON; Resp 18 S; Pulse Ox 98% on 4 lpm NC; af2 03:00 BP 152 / 90 (auto/); af2 03:01 Pulse 127 MON; Temp 97.8(TE); Pulse Ox 95% ; af2 03:30 BP 140 / 88 (auto/); af2 03:30 Pulse 117 MON; Pulse Ox 94% ; af2 04:00 BP 130 / 84 (auto/); af2 04:00 Pulse 116 MON; Resp 18 S; Pulse Ox 94% on 4 lpm NC; af2 04:30 BP 151 / 72 (auto/); af2 04:30 Pulse 120 MON; Pulse Ox 100% ; af2 05:00 BP 147 / 64 (auto/); af2 05:00 Pulse 120 MON; Resp 18 S; Pulse Ox 99% on 4 lpm NC; af2 05:30 BP 135 / 79 (auto/); af2 05:30 Pulse 118 MON; Resp 18 S; Pulse Ox 99% on 2 lpm NC; af2 06:30 BP 127 / 94 (auto/); af2 06:31 Pulse 128 MON; Resp 18; af2 06:35 Pulse Ox 100% ; af2 06:48 Pulse 122 MON; Pulse Ox 99% ; ja5 06:49 BP 142 / 91 (auto/); ja5 06:59 Pulse 123 MON; Pulse Ox 98% ; ja5 07:00 BP 133 / 86 (auto/); ja5 07:29 Pulse 125 MON; ja5 07:30 BP 138 / 92 (auto/); ja5 07:44 Pulse 128 MON; ja5 07:45 BP 138 / 79 (auto/); ja5 07:46 BP 138 / 79; Pulse 130; Resp 20; Temp 99.1(TE); Pulse Ox 92% on R/A; Pain 7; ja5 07:59 Pulse 120 MON; Pulse Ox 96% ; jc4 08:00 BP 144 / 71 (auto/); jc4 08:30 BP 128 / 93 (auto/); jc4 08:30 Pulse 124 MON; Pulse Ox 97% ; jc4 08:59 Pulse 129 MON; Pulse Ox 97% ; ja5 09:00 BP 147 / 96 (auto/); ja5 09:29 Pulse 123 MON; Pulse Ox 98% ; ja5 09:30 BP 147 / 82 (auto/); ja5 09:59 Pulse 127 MON; Pulse Ox 97% ; ja5 10:00 BP 139 / 77 (auto/); ja5 10:29 Pulse 124 MON; Pulse Ox 96% ; ja5 10:30 BP 138 / 74 (auto/); ja5 10:59 Pulse 119 MON; Pulse Ox 96% ; ja5 11:00 BP 131 / 95 (auto/); ja5 11:29 Pulse 120 MON; Pulse Ox 95% ; ja5 11:30 BP 137 / 85 (auto/); ja5 12:00 BP 154 / 80 (auto/); jc4 12:00 Pulse 107 MON; Pulse Ox 94% ; jc4 12:16 BP 154 / 80; Pulse 104; Resp 20; Temp 100.5(O); Pulse Ox 94% on 2 lpm NC; Pain 10; jc4 12:30 BP 141 / 84 (auto/); jc4 12:30 Pulse 113 MON; Pulse Ox 95% ; jc4 13:00 BP 152 / 69 (auto/); jc4 13:00 Pulse 119 MON; jc4 13:29 Pulse 123 MON; Pulse Ox 96% ; jc4 13:30 BP 158 / 67 (auto/); jc4 13:37 Temp 100.7(O); jc4 14:00 BP 166 / 77 (auto/); jc4 14:00 Pulse 126 MON; Pulse Ox 96% ; jc4 14:49 BP 140 / 76; Pulse 114; Resp 20; Temp 100.0(O); Pulse Ox 96% on R/A; jc4 11/19 22:26 Body Mass Index 34.46 (99.79 kg, 170.18 cm) ck1 MDM: 11/19 22:38 ECG WITH READING ER PHYS+CARDIAG ordered. EDMS 22:43 Consult PFS/PSA/Die Maker Electronic ordered. cs11 22:49 Call Respiratory ordered. cs11 22:49 Chest, 2 View (pa\E\lat) Ordered. EDMS 22:49 -Arterial Blood Gas Ordered. EDMS 22:52 Call Respiratory complete. tm5 22:54 Consult PFS/PSA/Die Maker Electronic complete. cl 23:09 -Arterial Blood Gas Reviewed. cs11 23:10 IV Saline Lock ordered. cs11 23:10 -Blood Culture (Adults Only), peripheral from different site, or from device/port/PICC cs11 etc. if present ordered. 23:12 Consult PFS/PSA/Die Maker Electronic: Patient's case requires discussion with on-call cs11 Psychiatrist ordered. 23:12 PSA/PFS to call [employer] Consultant, to enter patient data on [place] Safe Act if patient cs11 involuntarily admitted or transferred for SI or HI ordered. 23:12 Confirm accurate psychiatric medication list and times of last dosage ordered. cs11 23:12 Detain Pt Until Medically/PFS Cleared ordered. cs11 23:12 CBC with Diff Ordered. EDMS 23:12 -Blood Culture Ordered. EDMS 23:12 Acetaminophen Level Ordered. EDMS 23:12 Drug Eval Toxicology ED Only Ordered. EDMS 23:12 Ethyl Alcohol (ethanol) Ordered. EDMS 23:12 Liver Profile Ordered. EDMS 23:12 Salicylate Level Ordered. EDMS 23:17 Financial registration complete. [id number] 23:17 [facility] [place] Payment Agreement was scanned into [facility] and attached to record. [email or web address] 23:18 BASIC METABOLIC PROFILE Ordered. EDMS 23:19 cefUROXime 1.5 grams IV at calculated rate once over 30 mins; dilute in 50mL of NS or cs11 D5W ordered. 23:19 azithromycin 500 mg IVPB once over 1 hrs; dilute in 250mL of D5W or NS ordered. cs11 23:30 DIFFERENTIAL NO CHARGE Ordered. EDMS 23:30 PLATELET ESTIMATE Ordered. EDMS 23:56 CBC with Diff Reviewed. cs11 23:56 Acetaminophen Level Reviewed. cs11 23:56 Liver Profile Reviewed. cs11 23:56 Salicylate Level Reviewed. cs11 23:56 BASIC METABOLIC PROFILE Reviewed. cs11 23:56 Ethyl Alcohol (ethanol) Reviewed. cs11 23:56 PLATELET ESTIMATE Reviewed. cs11 23:57 NS 0.9% 1000 ml IV at bolus once ordered. cs11 23:57 Metoprolol (Tartrate) 50 mg PO once ordered. cs11 23:58 -Influenza A&B Rapid Antigen - Nose Ordered. EDMS 11/20 00:01 -Blood Culture (Adults Only), peripheral from different site, or from device/port/PICC af2 etc. if present complete. 00:03 Consult PFS/PSA/Die Maker Electronic: Patient's case requires discussion with on-call cl Psychiatrist complete. 00:03 PSA/PFS to call [employer] Consultant, to enter patient data [place] Safe [place] if patient cl involuntarily admitted or transferred for SI or HI complete. 00:04 Ondansetron 4 mg IVP once ordered. sls1 00:12 THYROID PROFILE Ordered. EDMS 00:16 Acetaminophen Level Reviewed. cs11 00:16 Liver Profile Reviewed. cs11 00:16 Salicylate Level Reviewed. cs11 00:16 BASIC METABOLIC PROFILE Reviewed. cs11 00:16 Ethyl Alcohol (ethanol) Reviewed. cs11 00:26 Admission / Observation Status ordered. EDMS 00:45 Admission / Observation Status ordered. EDMS 01:06 ECHOCARD,DOPPLER/COLOR FLOW ordered. EDMS 01:06 2 GRAM SODIUM DIET ordered. EDMS 01:07 CARDIAC MARKER PANEL Ordered. EDMS 01:07 CARDIAC MARKER PANEL Ordered. EDMS 01:07 CARDIAC MARKER PANEL Ordered. EDMS 01:07 COMPLETE BLOOD COUNT Ordered. EDMS 01:07 BASIC METABOLIC PROFILE Ordered. EDMS 01:18 RESPIRATORY PANEL Ordered. EDMS 02:10 Acetaminophen Tablet 650 mg PO once ordered. af2 19:31 COMPLETE BLOOD COUNT Ordered. EDMS 19:31 BASIC METABOLIC PROFILE Ordered. EDMS 02 11:06 Change Status: ordered. EDMS 14:56 T-Sheet-- Draft Copy was scanned into [facility] and attached to record. gb Administered Medications: 11/20 00:09 Drug: NS 0.9% 1000 ml [sodium chloride 0.9 % intravenous solution] Route: IV; Rate: af2 bolus; Site: left antecubital; 00:09 Drug: Ondansetron 4 mg [ondansetron HCl 2 mg/mL intravenous solution (2 mL)] Route: af2 IVP; Site: left antecubital; 01:00 Follow up: Response: Nausea is decreased af2 00:53 Drug: cefUROXime 1.5 grams [cefuroxime sodium 1.5 gram solution for injection] Route: af2 IV; Rate: calculated rate; Infused Over: 30 mins; Site: left antecubital; 00:53 Drug: Metoprolol 50 mg [metoprolol tartrate 50 mg tablet (1 tabs)] Route: PO; af2 02:23 Drug: Acetaminophen 650 mg [acetaminophen 325 mg tablet (2 tabs)] Route: PO; af2 02:24 Drug: azithromycin 500 mg [azithromycin 500 mg intravenous solution] Route: IVPB; af2 Infused Over: 1 hrs; Site: left antecubital; Signatures: [facility] Izzy Acevedo RN RN Tresa Medina RN RN daq Edith, Jose, PSA PSA cl Miri, Massiel, Reg Reg gb Frieda-Amy SauerRN RN ck1 Sally Marin, ALUMINUM POOL INSTALLER ALUMINUM POOL INSTALLER ar3 Serena Hale RN RN jc4 Miriam Hennessy RN RN sls1 Med Denson, DO DO cs11 Verenice DyerRN RN af2 Rabia Garcia, Reg Reg ks16 Hermelinda Mello,RN RN tm5 The chart was reviewed and I authenticate all verbal orders and agree with the evaluation and treatment provided.Corrections: (The following items were deleted from the chart) 11/19 23:18 23:12 BASIC METABOLIC PROFILE+LAB ordered. EDTX EDMS 23:18 23:12 COMPLETE BLOOD COUNT+LAB ordered. EDTX EDMS 11/20 00:12 11/19 23:12 THYROID STIMULATING HORMONE+LAB ordered. EDTX EDMS 11/20 00:12 11/19 23:56 THYROID STIMULATING HORMONE+LAB reviewed. cs11 EDMS 11/20 00:12 00:09 THYROID PROFILE+LAB ordered. EDMS EDMS Attachments: 11/19 23:17 [facility] Payment Agreement [email or web address] 11/21 14:56 T-Sheet-- Draft Copy gb MTDD
--- NOTE | 2016-11-21 18:13 | EDDOCDS ---
Nurse's Notes [facility] Name: Ana Seaman Age: 36 yrs Sex: Male : 1980 Arrival Date: 11/19/2016 Time: 22:13 Bed Admit Hold Private MD: Diagnosis: Pneumonia in diseases classified elsewhere;Hypoxemia;Other psychoactive substance abuse Presentation: 11/19 22:19 Presenting complaint: Father states: Found unconscious at home, brought to ED, refused ck1 treatment. Patient states he has now changed his mind and wishes to be "checked out". Presenting complaint: Patient states he took 3 of his Xanax, 4 tramadol, "smoked some weed" and drank 2 beers. Presenting complaint: Patient states he was "stressed out" and wanted "to go numb" denies SI. Adult Sepsis Screening: The patient does not have new or worsening altered mentation. Patient's respiratory rate is less than 22. Systolic blood pressure is greater than 100. Patient has a qSOFA score of 0- Negative Sepsis Screen. Suicide/Homicide risk assessment- the patient denies having any suicidal and/or homicidal ideations and does not present with any other emotional, behavioral or mental health complaints. Status: Patient is not a trains service conductor or dependent. Transition of care: patient was not received from another setting of care. 22:19 Acuity: JOSE ROBERTO Level 3 ck1 22:19 Method Of Arrival: Walkin/Carried/Asstd ck1 Triage Assessment: 22:23 General: Appears in no apparent distress, comfortable, Behavior is appropriate for age, ck1 cooperative. Pain: Location: head Pain currently is 7 out of 10 on a pain scale. HIV screening NA for this visit Offered previously. Neurological: Level of Consciousness is awake, alert, obeys commands, Oriented to person, place, time. Respiratory: Respiratory effort is unlabored, Respiratory pattern is regular, symmetrical. GI: Denies nausea, vomiting. Derm: Skin is intact, is healthy with good turgor, Skin is pink, warm & dry. Historical: - Allergies: no known allergies; - Home Meds: 1. tramadol 50 mg Oral TbDL Unknown four times a day 2. Xanax 1 mg Oral tab Unknown four times a day 3. Prilosec 20 mg Oral cpDR 1 cap once daily (Last dose: 11/19/2016) 4. Adderall XR 20 mg Oral cp24 1 cap twice a day (Last dose: 11/19/2016) - PMHx: Hypertension; Substance Abuse; - PSHx: Appendectomy; - Social history: Smoking status: Patient uses tobacco products, current some day smoker. Patient uses street drugs, marijuana, No barriers to communication noted, The patient speaks fluent Angolan, Speaks appropriately for age. - Family history: Not pertinent. - : The pt / caregiver states he / she is not on anticoagulants. Home medication list is obtained from the patient. - Exposure Risk Screening:: None identified. Screenin:46 Screening information is obtained from the patient. Fall risk: At risk due to prior af2 history of falls, The following interventions are performed due to a positive Fall Risk Screen: Fall Risk is added to Special Handling on the patient Summary Screen. A Fall Risk Bracelet was applied to the patient. Side Rails are placed in the up position. A Call Gilbert is given with instruction to call for help when getting out of bed. Assistance ADL's: requires no assistance with activities of daily living. Abuse/DV Screen: The patient / caregiver reports he/she is: not in a situation that causes fear, pain or injury. Nutritional screening: No deficits noted. Advance Directives: Currently, there is no health care proxy. home support is adequate. Assessment: 22:49 General: provider notified of 79% O2 on RA, pt placed on 6L NC, O2 sats improved to af2 93%.. 23:08 General: pt resting quietly on stretcher, resp easy and unlabored.. Neurological: Level af2 of Consciousness is awake, alert. Cardiovascular: Rhythm is sinus tachycardia. Respiratory: Denies shortness of breath. Derm: Skin is normal. 11/20 00:09 General: Appears uncomfortable, Behavior is cooperative, pt had large episode of af2 emesis, undigested food. medicated per order.. Neurological: Level of Consciousness is awake, alert. Cardiovascular: Rhythm is sinus tachycardia. Respiratory: Airway is patent Respiratory effort is even, unlabored, Breath sounds are clear bilaterally. Derm: Skin is normal. 00:41 General: Appears uncomfortable, Behavior is cooperative. Neurological: Level of af2 Consciousness is awake, alert. Respiratory: Airway is patent Respiratory effort is even, unlabored. Derm: Skin is normal. 01:21 General: pt family leaving at this time. for any change in condition or pt agitation af2 call Melody at [phone] or dad Zachariah [phone]. 02:31 General: Appears in no apparent distress, Behavior is cooperative. General:. af2 Neurological: Level of Consciousness is awake, alert. Respiratory: Airway is patent Respiratory effort is even, unlabored. Derm: Skin is normal. 03:30 General: Appears in no apparent distress, Behavior is cooperative. Neurological: Level af2 of Consciousness is awake, alert. Cardiovascular: Rhythm is sinus tachycardia. Respiratory: Airway is patent Respiratory effort is even, unlabored. Derm: Skin is normal. 04:45 General: Appears in no apparent distress, Behavior is cooperative, pt resting quietly af2 with eyes closed, resp easy and unlabored.. Neurological: Level of Consciousness is awake, alert. Cardiovascular: Rhythm is sinus tachycardia No ectopy. Derm: Skin is normal. 05:45 General: Appears in no apparent distress, Behavior is cooperative. Neurological: Level af2 of Consciousness is awake, alert. Cardiovascular: Rhythm is sinus tachycardia. Respiratory: Airway is patent Respiratory effort is even, unlabored. Derm: Skin is normal. 06:46 General: Appears in no apparent distress, Behavior is cooperative. Neurological: Level af2 of Consciousness is awake, alert. Cardiovascular: Rhythm is sinus tachycardia No ectopy. Respiratory: Airway is patent Respiratory effort is even, unlabored. Derm: Skin is normal. 07:47 General: Appears in no apparent distress, comfortable, Behavior is cooperative. Pain: ja5 Location: head Pain currently is 7 out of 10 on a pain scale. Neurological: Level of Consciousness is awake, alert, Oriented to person, place, time. Cardiovascular: Heart tones S1 S2 present Rhythm is atrial fibrillation with rapid ventricular response. Respiratory: Airway is patent Respiratory effort is even, unlabored, Breath sounds are clear bilaterally. Derm: Skin is pink, warm & dry. 07:56 General: O2 sat was 92% on RA. 2L O2 NC placed on patient to increase O2 sat to 96%.. ja5 08:50 General: Pt resting on stretcher. No distress noted at this time. Color pink, skin warm jc4 and dry. Respirations easy and full. pompom maker - atrial fibrillation with RVR. IVF infusing well, site clear. 09:30 General: Appears in no apparent distress, comfortable. Neurological: Level of jc4 Consciousness is awake, alert, Oriented to person, place, time. Cardiovascular: Rhythm is atrial fibrillation with rapid ventricular response. Respiratory: Airway is patent Respiratory effort is even, unlabored. Derm: Skin is pink, warm & dry. 10:30 Reassessment: Patient appears in no apparent distress at this time. jc4 11:34 General: Patient is resting in stretcher, states that he is very uncomfortable and ja5 cold. He was given some warm blankets and his position was changed. He stated that the position change and warm blankets helped. HR 117 afib on cardica monitior, O2 sat 94% on 2L O2 NC with even unlabored respirations. Bed in low position, call gilbert in reach, family at bedside.. 12:21 General: Pt ambulatory to bathroom. Gait steady. Pt states feels chills. Color pink, jc4 skin warm and dry. Respirations easy and full. pompom maker - atrial fibrillation with RVR. Pt states is feeling mildly anxious and has been medicated with Ativan per order. Pt cooperative. at bedside. 13:30 Reassessment: Patient appears in no apparent distress at this time. jc4 14:49 General: Pt ambulatory to bathroom. No distress noted at this time. Color pink, skin jc4 warm and dry. Respirations easy and full. pompom maker - atrial fibrillation with RVR. Pt denies any shortness of breath. States that back is uncomfortable due to ER stretcher. Pt moved to hospital bed and oriented to Room 20. Call gilbert in reach. Vital Signs: 11/19 22:25 Pulse Ox 79% on R/A; af2 22:26 BP 167 / 86; Pulse 98; Resp 18; Temp 97.8(O); Weight 99.79 kg; Height 5 ft. 7 in. ck1 (170.18 cm); 22:30 BP 147 / 70 (auto/); af2 22:31 Pulse Ox 100% ; af2 22:35 BP 158 / 88 (auto/); af2 22:35 Pulse 142 MON; Pulse Ox 81% ; af2 22:46 Pulse Ox 94% on 6 lpm NC; af2 22:46 Pulse 129; af2 23:00 BP 160 / 75 (auto/); af2 23:00 Pulse 133 MON; Pulse Ox 97% ; af2 23:30 BP 178 / 94 (auto/); af2 23:30 Pulse 143 MON; Resp 18 S; Pulse Ox 92% on 6 lpm NC; af2 17 00:00 BP 167 / 92 (auto/); af2 00:00 Pulse 124 MON; Resp 18 S; Pulse Ox 99% on 6 lpm NC; af2 00:29 Pulse 135 MON; af2 00:30 BP 177 / 102 (auto/); af2 00:43 BP 177 / 102; Pulse 144; Resp 18 S; Temp 100.9(TE); Pulse Ox 100% on 6 lpm NC; af2 01:30 BP 192 / 101 (auto/); af2 01:30 Pulse 133 MON; Resp 18 S; Pulse Ox 99% on 4 lpm NC; af2 02:00 BP 198 / 87 (auto/); af2 02:00 Pulse 149 MON; Resp 18 S; Pulse Ox 97% on 4 lpm NC; af2 02:17 BP 168 / 88 (auto/); af2 02:17 Pulse 144 MON; Resp 18 S; Pulse Ox 99% on 4 lpm NC; af2 02:30 BP 165 / 89 (auto/); af2 02:30 Pulse 129 MON; Resp 18 S; Pulse Ox 98% on 4 lpm NC; af2 03:00 BP 152 / 90 (auto/); af2 03:01 Pulse 127 MON; Temp 97.8(TE); Pulse Ox 95% ; af2 03:30 BP 140 / 88 (auto/); af2 03:30 Pulse 117 MON; Pulse Ox 94% ; af2 04:00 BP 130 / 84 (auto/); af2 04:00 Pulse 116 MON; Resp 18 S; Pulse Ox 94% on 4 lpm NC; af2 04:30 BP 151 / 72 (auto/); af2 04:30 Pulse 120 MON; Pulse Ox 100% ; af2 05:00 BP 147 / 64 (auto/); af2 05:00 Pulse 120 MON; Resp 18 S; Pulse Ox 99% on 4 lpm NC; af2 05:30 BP 135 / 79 (auto/); af2 05:30 Pulse 118 MON; Resp 18 S; Pulse Ox 99% on 2 lpm NC; af2 06:30 BP 127 / 94 (auto/); af2 06:31 Pulse 128 MON; Resp 18; af2 06:35 Pulse Ox 100% ; af2 06:48 Pulse 122 MON; Pulse Ox 99% ; ja5 06:49 BP 142 / 91 (auto/); ja5 06:59 Pulse 123 MON; Pulse Ox 98% ; ja5 07:00 BP 133 / 86 (auto/); ja5 07:29 Pulse 125 MON; ja5 07:30 BP 138 / 92 (auto/); ja5 07:44 Pulse 128 MON; ja5 07:45 BP 138 / 79 (auto/); ja5 07:46 BP 138 / 79; Pulse 130; Resp 20; Temp 99.1(TE); Pulse Ox 92% on R/A; Pain 7/10; ja5 07:59 Pulse 120 MON; Pulse Ox 96% ; jc4 08:00 BP 144 / 71 (auto/); jc4 08:30 BP 128 / 93 (auto/); jc4 08:30 Pulse 124 MON; Pulse Ox 97% ; jc4 08:59 Pulse 129 MON; Pulse Ox 97% ; ja5 09:00 BP 147 / 96 (auto/); ja5 09:29 Pulse 123 MON; Pulse Ox 98% ; ja5 09:30 BP 147 / 82 (auto/); ja5 09:59 Pulse 127 MON; Pulse Ox 97% ; ja5 10:00 BP 139 / 77 (auto/); ja5 10:29 Pulse 124 MON; Pulse Ox 96% ; ja5 10:30 BP 138 / 74 (auto/); ja5 10:59 Pulse 119 MON; Pulse Ox 96% ; ja5 11:00 BP 131 / 95 (auto/); ja5 11:29 Pulse 120 MON; Pulse Ox 95% ; ja5 11:30 BP 137 / 85 (auto/); ja5 12:00 BP 154 / 80 (auto/); jc4 12:00 Pulse 107 MON; Pulse Ox 94% ; jc4 12:16 BP 154 / 80; Pulse 104; Resp 20; Temp 100.5(O); Pulse Ox 94% on 2 lpm NC; Pain 7/10; jc4 12:30 BP 141 / 84 (auto/); jc4 12:30 Pulse 113 MON; Pulse Ox 95% ; jc4 13:00 BP 152 / 69 (auto/); jc4 13:00 Pulse 119 MON; jc4 13:29 Pulse 123 MON; Pulse Ox 96% ; jc4 13:30 BP 158 / 67 (auto/); jc4 13:37 Temp 100.7(O); jc4 14:00 BP 166 / 77 (auto/); jc4 14:00 Pulse 126 MON; Pulse Ox 96% ; jc4 14:49 BP 140 / 76; Pulse 114; Resp 20; Temp 100.0(O); Pulse Ox 96% on R/A; jc4 11/19 22:26 Body Mass Index 34.46 (99.79 kg, 170.18 cm) ck1 Vitals: 00:41 Log In Time N/A - ambulance arrival. af2 ED Course: 11/19 22:18 Patient visited by Brenda Boland. zo 22:18 Patient moved to Waiting 22:22 Triage Initiated ck1 22:24 Verenice DyerRN is Primary Nurse. ck1 22:24 Patient moved to 2 ck1 22:35 Missed attempts: 18 gauge X 1 in right antecubital area, Bleeding controlled, band aid af2 applied, catheter tip intact. 22:39 EKG done. (by ED staff). Reviewed by Дмитрий Hall MD. nb2 22:42 Kristy Thurman DO is Attending Physician. cs11 22:42 Patient visited by Kristy Thurman DO. cs11 22:43 Patient visited by Stacy Dumont. nb2 22:47 Patient visited by Verenice Dyer RN. af2 22:49 Patient visited by Verenice Dyer RN. af2 22:50 Patient visited by Verenice Dyer RN. af2 22:50 No procedures done that require assistance. af2 23:08 Patient visited by Verenice Dyer RN. af2 23:13 Acetaminophen Level Sent. af2 23:13 Ethyl Alcohol (ethanol) Sent. af2 23:13 Liver Profile Sent. af2 23:13 Salicylate Level Sent. af2 23:13 CBC with Diff Sent. af2 23:17 [facility] Payment Agreement was scanned into [employer] and attached to record. ks16 11/20 00:01 DIFFERENTIAL NO CHARGE Sent. af2 00:09 Patient visited by Verenice Dyer RN. af2 00:11 Patient visited by Verenice Dyer RN. af2 00:14 Severo Melo DO is Hospitalizing Provider. cs11 00:40 -Influenza A&B Rapid Antigen - Nose Sent. af2 00:41 The patient / caregiver is instructed regarding the plan of care and ED course. af2 00:59 Patient visited by Verenice Dyer RN. af2 01:14 Patient moved to Admit Hold sls1 02:32 Patient visited by Verenice Dyer RN. af2 05:13 Patient visited by Verenice Dyer RN. af2 06:33 Patient visited by Verenice Dyer RN. af2 06:47 Patient visited by Verenice Dyer RN. af2 07:06 Letitia Owens RN is Primary Nurse. ja5 07:15 Serena Hale RN is Primary Nurse. jc4 08:16 Chest, 2 View (pa\\E\\lat) Returned. EDMS 11:34 Patient visited by Letitia Owens RN. ja5 12:35 Primary Nurse role handed off by Verenice Dyer RN jc4 19:09 Primary Nurse role handed off by Serena Hale RN jc4 19:10 Primary Nurse role handed off by Letitia Owens RN jc4 20:03 EKG-ADULT Returned. EDMS 02 09:26 ECHOCARD,DOPPLER/COLOR FLOW Returned. EDMS 14:56 T-Sheet-- Draft Copy was scanned into [employer] and attached to record. gb Administered Medications: 11/20 00:09 Drug: NS 0.9% 1000 ml [sodium chloride 0.9 % intravenous solution] Route: IV; Rate: af2 bolus; Site: left antecubital; 00:09 Drug: Ondansetron 4 mg [ondansetron HCl 2 mg/mL intravenous solution (2 mL)] Route: af2 IVP; Site: left antecubital; 01:00 Follow up: Response: Nausea is decreased af2 00:53 Drug: cefUROXime 1.5 grams [cefuroxime sodium 1.5 gram solution for injection] Route: af2 IV; Rate: calculated rate; Infused Over: 30 mins; Site: left antecubital; 00:53 Drug: Metoprolol 50 mg [metoprolol tartrate 50 mg tablet (1 tabs)] Route: PO; af2 02:23 Drug: Acetaminophen 650 mg [acetaminophen 325 mg tablet (2 tabs)] Route: PO; af2 02:24 Drug: azithromycin 500 mg [azithromycin 500 mg intravenous solution] Route: IVPB; af2 Infused Over: 1 hrs; Site: left antecubital; Intake: 13:36 IV: 1000.00ml; Total: 1000.00ml. jc4 13:36 IV: 500.00ml (NS); Total: 1500.00ml. jc4 13:36 Banana Bag jc4 Output: 12:21 Urine: 800.00ml (Voided); Total: 800.00ml. jc4 13:36 Banana Bag jc4 RT: 11/19 23:00 ABG's drawn from right radial artery pressure held for 5 minutes no bleeding noted jh6 pressure bandage applied specimen sent pt. tolerated well. Order Results: Lab Order: -Arterial Blood Gas; SPEC'M 11/19/16 22:55 Test: ABG pH (ARTERIAL); Value: 7.328; Range: 7.350-7.450; Abnormal: Below low normal; Units: UNITS; Status: F Test: ABG PARTIAL PRESSURE CO2; Value: 48.9; Range: 35.0-45.0; Abnormal: Above high normal; Units: mmHg; Status: F Test: ABG PARTIAL PRESSURE O2; Value: 74.9; Range: 75.0-100.0; Abnormal: Below low normal; Units: mmHg; Status: F Test: ABG TOTAL CO2; Value: 26.6; Range: 22.0-29.0; Units: MEQ/L; Status: F Test: ABG HCO3; Value: 25.1; Range: 22.0-26.0; Units: MEQ/L; Status: F Test: ABG BASE EXCESS; Value: -1.4; Range: -2.0-2.0; Status: F Test: ABG STANDARD HCO3; Value: 23.2; Range: 22.0-26.0; Units: MEQ/L; Status: F Test: ABG O2 SATURATION; Value: 94.6; Range: 95.0-99.0; Abnormal: Below low normal; Units: %; Status: F Test: ABG DEVICE; Value: NASAL [place]; Status: F Lab Order: CBC with Diff; SPEC'M 11/19/16 22:35 Test: WHITE BLOOD COUNT; Value: 8.1; Range: 4.0-10.0; Units: K/mm3; Status: F Test: RED BLOOD COUNT; Value: 4.88; Range: 4.30-6.10; Units: M/mm3; Status: F Test: HEMOGLOBIN; Value: 14.9; Range: 14.0-18.0; Units: g/dl; Status: F Test: HEMATOCRIT; Value: 46.8; Range: 42.0-52.0; Units: %; Status: F Test: MEAN CORPUSCULAR VOLUME; Value: 95.9; Range: 80.0-96.0; Units: fl; Status: F Test: MEAN CORPUSCULAR HEMOGLOBIN; Value: 30.4; Range: 27.0-33.0; Units: pg; Status: F Test: MEAN CORPUSCULAR HGB CONC; Value: 31.7; Range: 32.0-36.5; Abnormal: Below low normal; Units: g/dl; Status: F Test: RED CELL DISTRIBUTION WIDTH; Value: 12.6; Range: 11.5-14.5; Units: %; Status: F Test: PLATELET COUNT, AUTOMATED; Value: 360; Range: 150-450; Units: k/mm3; Status: F Test: PLATELET ESTIMATE; Range: NORMAL; Status: I Test: NEUTROPHILS; Value: 74; Range: 35-75; Units: %; Status: F Test: BANDS; Value: 2; Range: < 11; Units: %; Status: F Test: LYMPHOCYTES; Value: 16; Range: 16-52; Units: %; Status: F Test: MONOCYTES; Value: 6; Range: 0-8; Units: %; Status: F Test: EOSINOPHILS; Value: 1; Range: 0-5; Units: %; Status: F Test: BASOPHILS; Value: 1; Range: 0-4; Units: %; Status: F Test: PLATELET CLUMPS; Value: SMALL AMT; Status: F Lab Order: -Blood Culture; SPEC'M 11/19/16 23:44 Test: BLOOD CULTURE; Value: No growth after 24 hours . All specimens observed; Status: F Test: BLOOD CULTURE; Value: for 7 days. Results final at that time.; Status: F Lab Order: Acetaminophen Level; SPEC'M 11/19/16 22:35 Test: ACETAMINOPHEN LEVEL; Value: < 2.0; Range: 10.0-30.0; Abnormal: Below low normal; Units: UG/ML; Status: F Lab Order: Drug Eval Toxicology ED Only; SPEC'M 11/20/16 12:00 Test: AMPHETAMINES LEVEL URINE; Value: POSITIVE; Range: NEGATIVE; Abnormal: Above high normal; Status: F Test: BARBITURATES URINE; Value: NEGATIVE; Range: NEGATIVE; Status: F Test: BENZODIAZEPINES URINE; Value: POSITIVE; Range: NEGATIVE; Abnormal: Above high normal; Status: F Test: CANNABINOIDS URINE; Value: POSITIVE; Range: NEGATIVE; Abnormal: Above high normal; Status: F Test: COCAINE METABOLITE URINE; Value: NEGATIVE; Range: NEGATIVE; Status: F Test: METHADONE URINE; Value: NEGATIVE; Range: NEGATIVE; Status: F Test: OPIATES URINE; Value: POSITIVE; Range: NEGATIVE; Abnormal: Above high normal; Status: F Test: TRICYCLIC ANTIDEPRESS URINE; Value: NEGATIVE; Range: NEGATIVE; Status: F Test Note: ; FALSE POSITIVE RESULTS CAN BE CAUSED BY THE USE OF PANTOPRAZOLE (PROTONIX). Lab Order: Ethyl Alcohol (ethanol); SPEC'M 11/19/16 22:35 Test: ETHYL ALCOHOL (ETHANOL); Value: 0.007; Range: 0.000-0.010; Units: %; Status: F Lab Order: Liver Profile; SPEC'M 11/19/16 22:35 Test: AST/SGOT; Value: 37; Range: 15-37; Units: U/L; Status: F Test: ALT/SGPT; Value: 59; Range: 12-78; Units: U/L; Status: F Test: ALKALINE PHOSPHATASE; Value: 78; Range: 45-117; Units: U/L; Status: F Test: BILIRUBIN,TOTAL; Value: 0.4; Range: 0.2-1.0; Units: MG/DL; Status: F Test: BILIRUBIN,DIRECT; Value: < 0.1; Range: 0.0-0.2; Units: MG/DL; Status: F Test: TOTAL PROTEIN; Value: 8.3; Range: 6.4-8.2; Abnormal: Above high normal; Units: GM/DL; Status: F Test: ALBUMIN; Value: 4.6; Range: 3.2-5.2; Units: GM/DL; Status: F Test: ALBUMIN/GLOBULIN RATIO; Value: 1.24; Range: 1.00-1.93; Status: F Lab Order: Salicylate Level; [facility]' 11/19/16 22:35 Test: SALICYLATE LEVEL; Value: < 1.7; Range: 5.0-30.0; Abnormal: Below low normal; Units: MG/DL; Status: F Lab Order: BASIC METABOLIC PROFILE; [facility]' 11/19/16 22:35 Test: GLUCOSE, FASTING; Value: 96; Range: 70-105; Units: MG/DL; Status: F Test: BLOOD UREA NITROGEN; Value: 17; Range: 7-18; Units: MG/DL; Status: F Test: CREATININE FOR GFR; Value: 1.75; Range: 0.70-1.30; Abnormal: Above high normal; Units: MG/DL; Status: F Test: GLOMERULAR FILTRATION RATE; Value: 47.5; Range: >60; Abnormal: Below low normal; Status: F Test: SODIUM LEVEL; Value: 140; Range: 136-145; Units: MEQ/L; Status: F Test: POTASSIUM SERUM; Value: 4.4; Range: 3.5-5.1; Units: MEQ/L; Status: F Test: CHLORIDE LEVEL; Value: 103; Range: 98-107; Units: MEQ/L; Status: F Test: CARBON DIOXIDE LEVEL; Value: 30; Range: 21-32; Units: MEQ/L; Status: F Test: ANION GAP; Value: 7; Range: 8-16; Abnormal: Below low normal; Units: MEQ/L; Status: F Test: CALCIUM LEVEL; Value: 8.9; Range: 8.5-10.1; Units: MG/DL; Status: F Test Note: ; Units are mL/min/1.73 m2 Chronic Kidney Disease Staging per NKF: Stage I & II GFR >=60 Normal to Mildly Decreased Stage III GFR 30-59 Moderately Decreased Stage IV GFR 15-29 Severely Decreased Stage V GFR <15 Very Little GFR Left ESRD GFR <15 on ARCHITECTURAL EXAMINER Lab Order: PLATELET ESTIMATE; SPEC' 11/19/16 22:35 Test: PLATELET ESTIMATE; Value: NORMAL; Range: NORMAL; Status: F Lab Order: -Influenza A&B Rapid Antigen - Nose; SPEC'M 11/20/16 00:39 Test: INFLUENZA A RAPID SCR by ICA; Value: INFLUENZA A RESULTS NEGATIVE; Status: F Test: INFLUENZA A RAPID SCR by ICA; Value: Comments:; Status: F Test: INFLUENZA B RAPID SCR by ICA; Value: INFLUENZA B RESULTS NEGATIVE; Status: F Test Note: ; The Influenza test is a direct rapid immunoassay for the qualitative detection of Influenza viral antigen. Cell culture (Viral Culture) testing should be considered to confirm NEGATIVE results and to assist in detecting other viruses that can provide similar clinical symptoms. Please contact the lab within 24 hours ([phone]) if confirmatory testing is desired. Lab Order: THYROID PROFILE; SPEC'M 11/19/16 22:35 Test: T UPTAKE; Value: 32; Range: 33-40; Abnormal: Below low normal; Units: %; Status: F Test: THYROXINE (T4); Value: 8.7; Range: 4.5-12.0; Units: UG/DL; Status: F Test: FREE THYROXINE INDEX; Value: 2.8; Range: 1.4-3.8; Units: %; Status: F Test: THYROID STIMULATING HORMONE; Value: 1.570; Range: 0.358-3.740; Units: uIU/ML; Status: F Lab Order: CARDIAC MARKER PANEL; [facility] 11/20/16 23:48 Test: CPK CREATINE PHOSPHOKINASE; Value: 182; Range: 39-308; Units: U/L; Status: F Test: CK-MB VALUE MASS; Value: 1.1; Range: 0.0-3.6; Units: NG/ML; Status: F Test: MB/CK RELATIVE INDEX; Value: 0.60; Range: < OR =4; Status: F Test: TROPONIN I; Value: < 0.02; Range: < 0.10; Units: NG/ML; Status: F Test Note: ; DIAGNOSIS CRITERIA MMB ng/ml Relative Index (RI) NON-AMI < or = 5 N/A REGAL[place]O ZONE > 5 < or = 4 AMI > 5 > 4 Lab Order: CARDIAC MARKER PANEL; [facility] 11/20/16 09:17 Test: CPK CREATINE PHOSPHOKINASE; Value: 251; Range: 39-308; Units: U/L; Status: F Test: CK-MB VALUE MASS; Value: 1.5; Range: 0.0-3.6; Units: NG/ML; Status: F Test: MB/CK RELATIVE INDEX; Value: 0.59; Range: < OR =4; Status: F Test: TROPONIN I; Value: < 0.02; Range: < 0.10; Units: NG/ML; Status: F Test Note: ; DIAGNOSIS CRITERIA MMB ng/ml Relative Index (RI) NON-AMI < or = 5 N/A REGALADO ZONE > 5 < or = 4 AMI > 5 > 4 Lab Order: CARDIAC MARKER PANEL; [facility] 11/20/16 17:41 Test: CPK CREATINE PHOSPHOKINASE; Value: 199; Range: 39-308; Units: U/L; Status: F Test: CK-MB VALUE MASS; Value: 1.0; Range: 0.0-3.6; Units: NG/ML; Status: F Test: MB/CK RELATIVE INDEX; Value: 0.50; Range: < OR =4; Status: F Test: TROPONIN I; Value: < 0.02; Range: < 0.10; Units: NG/ML; Status: F Test Note: ; DIAGNOSIS CRITERIA MMB ng/ml Relative Index (RI) NON-AMI < or = 5 N/A REGALADO ZONE > 5 < or = 4 AMI > 5 > 4 Lab Order: COMPLETE BLOOD COUNT; [facility] 11/20/16 05:48 Test: WHITE BLOOD COUNT; Value: 13.1; Range: 4.0-10.0; Abnormal: Above high normal; Units: K/mm3; Status: F Test: RED BLOOD COUNT; Value: 4.57; Range: 4.30-6.10; Units: M/mm3; Status: F Test: HEMOGLOBIN; Value: 14.3; Range: 14.0-18.0; Units: g/dl; Status: F Test: HEMATOCRIT; Value: 44.5; Range: 42.0-52.0; Units: %; Status: F Test: MEAN CORPUSCULAR VOLUME; Value: 97.3; Range: 80.0-96.0; Abnormal: Above high normal; Units: fl; Status: F Test: MEAN CORPUSCULAR HEMOGLOBIN; Value: 31.2; Range: 27.0-33.0; Units: pg; Status: F Test: MEAN CORPUSCULAR HGB CONC; Value: 32.1; Range: 32.0-36.5; Units: g/dl; Status: F Test: RED CELL DISTRIBUTION WIDTH; Value: 12.7; Range: 11.5-14.5; Units: %; Status: F Test: PLATELET COUNT, AUTOMATED; Value: 330; Range: 150-450; Units: k/mm3; Status: F Lab Order: BASIC METABOLIC PROFILE; SPEC'M 11/20/16 05:48 Test: GLUCOSE, FASTING; Value: 117; Range: 70-105; Abnormal: Above high normal; Units: MG/DL; Status: F Test: BLOOD UREA NITROGEN; Value: 15; Range: 7-18; Units: MG/DL; Status: F Test: CREATININE FOR GFR; Value: 1.32; Range: 0.70-1.30; Abnormal: Above high normal; Units: MG/DL; Status: F Test: GLOMERULAR FILTRATION RATE; Value: > 60.0; Range: >60; Status: F Test: SODIUM LEVEL; Value: 140; Range: 136-145; Units: MEQ/L; Status: F Test: POTASSIUM SERUM; Value: 4.7; Range: 3.5-5.1; Units: MEQ/L; Status: F Test: CHLORIDE LEVEL; Value: 104; Range: 98-107; Units: MEQ/L; Status: F Test: CARBON DIOXIDE LEVEL; Value: 29; Range: 21-32; Units: MEQ/L; Status: F Test: ANION GAP; Value: 7; Range: 8-16; Abnormal: Below low normal; Units: MEQ/L; Status: F Test: CALCIUM LEVEL; Value: 8.3; Range: 8.5-10.1; Abnormal: Below low normal; Units: MG/DL; Status: F Test Note: ; Units are mL/min/1.73 m2 Chronic Kidney Disease Staging per NKF: Stage I & II GFR >=60 Normal to Mildly Decreased Stage III GFR 30-59 Moderately Decreased Stage IV GFR 15-29 Severely Decreased Stage V GFR <15 Very Little GFR Left ESRD GFR <15 on ARCHITECTURAL EXAMINER Lab Order: RESPIRATORY PANEL; SPEC'M 11/20/16 00:39 Test: RESPIRATORY PANEL; Value: RP PANEL RESULT POSITIVE by PCR; Abnormal: Abnormal; Status: F Test: RESPIRATORY PANEL; Value: Comments:; Status: F Test: RESPIRATORY PANEL; Value: ORGANISM 1: CORONAVIRUS 229E; Status: F Test: RESPIRATORY PANEL; Value: CORONAVIRUS 229E; Status: F Test: RESPIRATORY PANEL; Value: Beltran 229E 1 Coronaviruses are most commonly associated with; Status: F Test: RESPIRATORY PANEL; Value: Beltran 229E 2 mild to moderate upper respiratory tract infections.; Status: F Test: RESPIRATORY PANEL; Value: Beltran 229E 3 Coronaviruses have been associated with croup and; Status: F Test: RESPIRATORY PANEL; Value: Beltran 229E 4 exacerbation of asthma. Infections occur more often; Status: F Test: RESPIRATORY PANEL; Value: Beltran 229E 5 in the winter.; Status: F Test Note: ; This respiratory PCR panel detects Influenza A H1, H3 and 2009 H1 viruses, Influenza B virus, Respiratory syncytial virus, Human metapneumovirus, Parainfluenza virus 1, 2, 3 and 4, Adenovirus, Rhinovirus/Enterovirus, Coronavirus HKU1, NL63, OC43 and 229E, Bordetella pertussis, Mycoplasma pneumoniae and Chlamydia pneumoniae. Lab Order: COMPLETE BLOOD COUNT; SPEC'M 11/21/16 06:32 Test: WHITE BLOOD COUNT; Value: 17.0; Range: 4.0-10.0; Abnormal: Above high normal; Units: K/mm3; Status: F Test: RED BLOOD COUNT; Value: 4.78; Range: 4.30-6.10; Units: M/mm3; Status: F Test: HEMOGLOBIN; Value: 14.7; Range: 14.0-18.0; Units: g/dl; Status: F Test: HEMATOCRIT; Value: 45.4; Range: 42.0-52.0; Units: %; Status: F Test: MEAN CORPUSCULAR VOLUME; Value: 94.9; Range: 80.0-96.0; Units: fl; Status: F Test: MEAN CORPUSCULAR HEMOGLOBIN; Value: 30.6; Range: 27.0-33.0; Units: pg; Status: F Test: MEAN CORPUSCULAR HGB CONC; Value: 32.3; Range: 32.0-36.5; Units: g/dl; Status: F Test: RED CELL DISTRIBUTION WIDTH; Value: 12.6; Range: 11.5-14.5; Units: %; Status: F Test: PLATELET COUNT, AUTOMATED; Value: 336; Range: 150-450; Units: k/mm3; Status: F Lab Order: BASIC METABOLIC PROFILE; 11/21/16 06:32 Test: GLUCOSE, FASTING; Value: 93; Range: 70-105; Units: MG/DL; Status: F Test: BLOOD UREA NITROGEN; Value: 8; Range: 7-18; Units: MG/DL; Status: F Test: CREATININE FOR GFR; Value: 0.84; Range: 0.70-1.30; Units: MG/DL; Status: F Test: GLOMERULAR FILTRATION RATE; Value: > 60.0; Range: >60; Status: F Test: SODIUM LEVEL; Value: 142; Range: 136-145; Units: MEQ/L; Status: F Test: POTASSIUM SERUM; Value: 3.9; Range: 3.5-5.1; Units: MEQ/L; Status: F Test: CHLORIDE LEVEL; Value: 107; Range: 98-107; Units: MEQ/L; Status: F Test: CARBON DIOXIDE LEVEL; Value: 27; Range: 21-32; Units: MEQ/L; Status: F Test: ANION GAP; Value: 8; Range: 8-16; Units: MEQ/L; Status: F Test: CALCIUM LEVEL; Value: 8.7; Range: 8.5-10.1; Units: MG/DL; Status: F Test Note: ; Units are mL/min/1.73 m2 Chronic Kidney Disease Staging per NKF: Stage I & II GFR >=60 Normal to Mildly Decreased Stage III GFR 30-59 Moderately Decreased Stage IV GFR 15-29 Severely Decreased Stage V GFR <15 Very Little GFR Left ESRD GFR <15 on ARCHITECTURAL EXAMINER Radiology Order: EKG-ADULT Test: EKG-ADULT REASON FOR EXAMINATION: tachycardia; Stationary ECG Study; [facility] - ED; ; Test Date: 2016-11-19; Pat Name: ANA SEAMAN Department:; Room: [place] [address]; Gender: M 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: wes; : 1980 Requested By: KRISTY THURMAN; Order Number: [id number] Reading MD: Sasha Pretty; Measurements; Intervals [place]; Rate: 135 P:; SD: 0 QRS: 37; QRSD: 87 T: 6; QT: 287; QTc: 431; Interpretive Statements; ATRIAL FIBRILLATION WITH RAPID VENTRICULAR RESPONSE; NONSPECIFIC T-WAVE ABNORMALITY; ABNORMAL RHYTHM ECG; PRIOR SINUS BRADYCARDIA 10/17/15; Electronically Signed On 11-20-2016 19:49:57 EST by Sasha Pretty; Radiology Order: Chest, 2 View (pa\\E\\lat) Test: Chest, 2 View (pa\\E\\lat) REASON FOR EXAMINATION: Cough; Clinical: Cough.; ; Technique: PA and lateral.; ; Findings: Bilateral lower lobe infiltrates compatible with acute pneumonia. No; effusion. No pneumothorax. Cardiac silhouette normal. Skeletal structures; intact.; ; Impression:; Lower lobe infiltrates compatible with acute pneumonia.; ; ; Signed by; Cristo Nance MD 11/20/2016 07:43 A; Outcome: 11/20 00:15 Decision to Hospitalize by Provider. cs11 00:41 Discharge Assessment: Patient awake, alert and oriented x 3. No cognitive and/or af2 functional deficits noted. Patient verbalized understanding of disposition instructions. patient administered narcotics - no. The following High Risk Discharge criteria are identified: None. Admitted to Med/Surg accompanied by tech, via stretcher, with oxygen, with chart. Condition: stable. No special radiology studies were completed. Property :Personal belongings accompany Pt. 11/21 18:12 Patient left the ED. [facility] Signatures: Dispatcher [employer] EDKS Izzy Acevedo, RN RN [facility] Massiel Chery, Reg Reg gb Amy Davis,RN RN ck1 Brenda Boland Jennifer RN RN mark4 Amrit Chandler 6 Miriam Hennessy RN RN sls1 Kristy Thurman DO DO cs11 Verenice Dyer RN RN af2 Rabia Garcia, Reg Reg ks16 Stacy Dumont nb2 Letitia Owens,RN RN ja5 Corrections: (The following items were deleted from the chart) 02/16 23:18 23:13 COMPLETE BLOOD COUNT+LAB sent. af2 EDMS 11/20 00:12 11/19 23:13 THYROID STIMULATING HORMONE+LAB sent. af2 EDMS 11/20 07:53 07:46 BP 138 / 79; Pulse 130bpm; Resp 20bpm; Temp 99.1F Temporal; Pain 7/10; ja5 ja5 07:58 07:56 General: O2 sat was 91% on RA. 2L O2 NC placed on patient to increase O2 sat to ja5 96%.. ja5 MTDD
[2016-11-22 04:11] VITALS: BP 150/85
[2016-11-22] MEDS: LORazepam 2 MG/ML VIAL (J2060) IV PRN ×2 (04:13→20:46)
[2016-11-22] MEDS: LevoFLOXacin IV 750 MG in APPROPRIATE DILUENT 1 EA IV SCH (04:13)
[2016-11-22 05:36] LABS: MEAN CORPUSCULAR HEMOGLOBIN 31.1 pg (27.0-33.0); MEAN CORPUSCULAR HGB CONC 33.1 g/dl (32.0-36.5); MEAN CORPUSCULAR VOLUME 94.1 fl (80.0-96.0); RED CELL DISTRIBUTION WIDTH 12.6 % (11.5-14.5); WHITE BLOOD COUNT 9.8 K/mm3 (4.0-10.0)
[2016-11-22 05:54] LABS: ANION GAP 9 MEQ/L (8-16); BLOOD UREA NITROGEN 9 MG/DL (7-18); CALCIUM LEVEL 8.9 MG/DL (8.5-10.1); CARBON DIOXIDE LEVEL 24 MEQ/L (21-32); CHLORIDE LEVEL 111 MEQ/L (98-107); CREATININE FOR GFR 0.83 MG/DL (0.70-1.30); GLOMERULAR FILTRATION RATE > 60.0 (>60); GLUCOSE, FASTING 104 MG/DL (70-105); POTASSIUM SERUM 3.5 MEQ/L (3.5-5.1); SODIUM LEVEL 144 MEQ/L (136-145)
[2016-11-22] MEDS: OXAZEPAM 10 MG CAP PO SCH ×3 (05:58→22:33)
[2016-11-22] MEDS: HEPARIN SOD (PORCINE) 5000 UNITS/ML VIAL SC SCH ×3 (05:59→22:33)
[2016-11-22 08:00] VITALS: BP 157/75
[2016-11-22] MEDS: OMEPRAZOLE 20 MG CAP PO SCH (08:55)
[2016-11-22] MEDS: OXAZEPAM 10 MG CAP PO PRN ×2 (08:55→16:36)
[2016-11-22] MEDS: ASPIRIN 81 MG ENTERIC TAB PO SCH (08:56)
[2016-11-22] MEDS: IBUPROFEN 400 MG TAB PO PRN ×2 (08:56→22:39)
[2016-11-22] MEDS: ADDERALL 5 MG TAB PO SCH ×2 (10:37→12:58)
[2016-11-22 11:45] VITALS: BP 160/90
[2016-11-22 14:00] VITALS: BP 139/91
[2016-11-22 22:00] VITALS: BP 168/93
[2016-11-23] MEDS: LevoFLOXacin IV 750 MG in APPROPRIATE DILUENT 1 EA IV SCH (03:09)
[2016-11-23] MEDS: LORazepam 2 MG/ML VIAL (J2060) IV PRN ×4 (03:23→19:51)
[2016-11-23] MEDS: OXAZEPAM 10 MG CAP PO SCH ×3 (05:53→21:59)
[2016-11-23] MEDS: HEPARIN SOD (PORCINE) 5000 UNITS/ML VIAL SC SCH ×3 (05:53→22:00)
[2016-11-23 06:00] VITALS: BP 137/90
[2016-11-23 07:08] LABS: MEAN CORPUSCULAR HEMOGLOBIN 30.9 pg (27.0-33.0); MEAN CORPUSCULAR HGB CONC 32.9 g/dl (32.0-36.5); RED CELL DISTRIBUTION WIDTH 12.6 % (11.5-14.5); WHITE BLOOD COUNT 6.9 K/mm3 (4.0-10.0)
[2016-11-23 07:19] LABS: ANION GAP 8 MEQ/L (8-16); BLOOD UREA NITROGEN 16 MG/DL (7-18); CALCIUM LEVEL 9.1 MG/DL (8.5-10.1); CARBON DIOXIDE LEVEL 26 MEQ/L (21-32); CHLORIDE LEVEL 109 MEQ/L (98-107); CREATININE FOR GFR 1.06 MG/DL (0.70-1.30); GLOMERULAR FILTRATION RATE > 60.0 (>60); GLUCOSE, FASTING 91 MG/DL (70-105); POTASSIUM SERUM 3.5 MEQ/L (3.5-5.1); SODIUM LEVEL 143 MEQ/L (136-145)
--- NOTE | 2016-11-23 07:56 | IPN ---
DATE OF VISIT: Mr. Storm is feeling a little better today. He is still tachycardic but is not describing any sensation of palpitations. He does also complain of continued muscle aches and pains and he has felt warm although there is no report of fever. PHYSICAL EXAMINATION VITAL SIGNS: Temperature is 99.3, pulse 109, respirations 16, blood pressure 137/85, 97% on room air. Input and output (I and O) notable for a net fluid balance of minus 990. GENERAL: He is awake, appropriately interactive, somewhat more comfortable appearing than yesterday. HEENT: Moist mucous membranes. NECK: Supple. RESPIRATORY: Breathing symmetrical, coarse airway sounds, no wheezes, rales or rhonchi. HEART: Regular rate and rhythm, tachycardic with a rate of 130 on my exam. Does not appear or sound to be particularly irregular at this point. ABDOMEN: Soft, doughy, nontender. EXTREMITIES: Capillary refill less than two seconds. LABORATORY DATA: White cell count is 17, hemoglobin 14.7, BUN 8, Creatinine 0. 84. CK and troponins negative times three. Echocardiogram shows borderline concentric left ventricular hypertrophy with preserved systolic function. Moderate pulmonary hypertension. There is some elevation in central venous pressure. ASSESSMENT: This is a 36-year-old with coronavirus and community-acquired pneumonia. PLAN: 1. Infectious disease. The patient is being treated for right lower lobe pneumonia. He is on quinolones. He is known to have coronavirus. Blood culture negative for 24 hours. 2. The patient was thought to have new onset atrial fibrillation. This is made worse in the setting of fever and possible negative fluid status. I have increased his Cardizem today and we are giving him some additional intravenous (IV) fluid. 3. The patient has a history of polysubstance abuse. He is on scheduled and as needed Serax. Some element of his tachycardia could represent withdrawal symptoms. There is no tremor on exam, the patient is not particularly anxious. 4. Patient has resolved his acute renal failure. The patient requires continued telemetry monitoring due to his tachycardia. Likely discharge in 1-2 days.
[2016-11-23] MEDS ORDERED: ALPRAZolam 0.5 MG TAB PO PRN (09:30)
[2016-11-23] MEDS: ADDERALL 5 MG TAB PO SCH ×2 (10:16→14:15)
[2016-11-23] MEDS: OMEPRAZOLE 20 MG CAP PO SCH (10:16)
[2016-11-23] MEDS: ASPIRIN 81 MG ENTERIC TAB PO SCH (10:16)
[2016-11-23] MEDS ORDERED: diltiaZEM **CD** 180 MG CAP PO ONE (12:00)
[2016-11-23 14:00] VITALS: BP 155/86
[2016-11-23] MEDS: ACETAMINOPHEN TAB 650MG DOSE (2X325MG) PO PRN ×2 (15:47→19:52)
--- NOTE | 2016-11-23 15:54 | IPN ---
DATE: 11/22/2016 Mr. Storm is feeling better today. He has no complaints of chest pain, not particularly short of breath. Has been coughing. Feels somewhat shaky. Thinks he may be going into withdrawals. Temperature is 97.9, pulse 95, respiratory rate 22, blood pressure 157/75, 95% on room air. Intake and output (I and O) notable for positive fluid balance of 229, thus far today, although not all of the voids have been captured. Weight is 96.7 kg. He is appropriately interactive, pleasantly conversant. Mucous membranes moist, neck supple. There is a fine tremor noted in his hands. He does not appear particularly anxious. He is not tachycardic. Heart is distant sounding. Normal S1, S2. Appears to be regular on the monitor. Breathing is symmetrical, diminished throughout. No wheezes. Abdomen is soft, doughy, nontender. White cell count 9.8, hemoglobin 12.9, platelets 314, BUN 9, creatinine 0.83. ASSESSMENT: This is a 36-year-old with coronavirus being treated for community acquired pneumonia. PLAN: 1. Infectious disease. The patient had right lower lobe infiltrate. Is being treated with quinolone and has been found to have coronavirus. Is clinically improved. 2. The patient has new onset atrial fibrillation noted during his stay. Was relatively tachycardic yesterday. He is on Cardizem. Rate is better controlled. Cause of tachycardia can be multifactorial. A portion of the reason could be withdrawal. 3. The patient has history of polysubstance abuse. I have increased his baseline level of Serax. Can continue his as needed Serax and Ativan as needed. 4. The patient has resolved acute renal failure. 5. The patient has appropriate deep venous thrombosis (DVT) prophylaxis in the form of heparin.
--- NOTE | 2016-11-23 19:12 | EDDOCDS ---
Physician Documentation [facility] Name: Ana Storm Age: 36 yrs Sex: Male : 1980 Arrival Date: 11/19/2016 Time: 22:13 Bed Admit Hold Private MD: Disposition: 11/20/16 00:15 Hospitalization ordered by Severo Melo for Inpatient Admission. Preliminary diagnosis are Pneumonia in diseases classified elsewhere, Hypoxemia, Other psychoactive substance abuse. - Bed requested for PCU. - [facility] - Condition is Stable. - Problem is an ongoing problem. - Symptoms have improved. Historical: - Allergies: no known allergies; - Home Meds: 1. tramadol 50 mg Oral TbDL Unknown four times a day 2. Xanax 1 mg Oral tab Unknown four times a day 3. Prilosec 20 mg Oral cpDR 1 cap once daily (Last dose: 11/19/2016) 4. Adderall XR 20 mg Oral cp24 1 cap twice a day (Last dose: 11/19/2016) - PMHx: Hypertension; Substance Abuse; - PSHx: Appendectomy; - Social history: Smoking status: Patient uses tobacco products, current some day smoker. Patient uses street drugs, marijuana, No barriers to communication noted, The patient speaks fluent Ethiopian, Speaks appropriately for age. - Family history: Not pertinent. - : The pt / caregiver states he / she is not on anticoagulants. Home medication list is obtained from the patient. - Exposure Risk Screening:: None identified. Vital Signs: 11/19 22:25 Pulse Ox 79% on R/A; af2 22:26 BP 167 / 86; Pulse 98; Resp 18; Temp 97.8(O); Weight 99.79 kg / 220 lbs; Height 5 ft. 7 ck1 in. (170.18 cm); 22:30 BP 147 / 70 (auto/); af2 22:31 Pulse Ox 100% ; af2 22:35 BP 158 / 88 (auto/); af2 22:35 Pulse 142 MON; Pulse Ox 81% ; af2 22:46 Pulse Ox 94% on 6 lpm NC; af2 22:46 Pulse 129; af2 23:00 BP 160 / 75 (auto/); af2 23:00 Pulse 133 MON; Pulse Ox 97% ; af2 23:30 BP 178 / 94 (auto/); af2 23:30 Pulse 143 MON; Resp 18 S; Pulse Ox 92% on 6 lpm NC; af2 0217 00:00 BP 167 / 92 (auto/); af2 00:00 Pulse 124 MON; Resp 18 S; Pulse Ox 99% on 6 lpm NC; af2 00:29 Pulse 135 MON; af2 00:30 BP 177 / 102 (auto/); af2 00:43 BP 177 / 102; Pulse 144; Resp 18 S; Temp 100.9(TE); Pulse Ox 100% on 6 lpm NC; af2 01:30 BP 192 / 101 (auto/); af2 01:30 Pulse 133 MON; Resp 18 S; Pulse Ox 99% on 4 lpm NC; af2 02:00 BP 198 / 87 (auto/); af2 02:00 Pulse 149 MON; Resp 18 S; Pulse Ox 97% on 4 lpm NC; af2 02:17 BP 168 / 88 (auto/); af2 02:17 Pulse 144 MON; Resp 18 S; Pulse Ox 99% on 4 lpm NC; af2 02:30 BP 165 / 89 (auto/); af2 02:30 Pulse 129 MON; Resp 18 S; Pulse Ox 98% on 4 lpm NC; af2 03:00 BP 152 / 90 (auto/); af2 03:01 Pulse 127 MON; Temp 97.8(TE); Pulse Ox 95% ; af2 03:30 BP 140 / 88 (auto/); af2 03:30 Pulse 117 MON; Pulse Ox 94% ; af2 04:00 BP 130 / 84 (auto/); af2 04:00 Pulse 116 MON; Resp 18 S; Pulse Ox 94% on 4 lpm NC; af2 04:30 BP 151 / 72 (auto/); af2 04:30 Pulse 120 MON; Pulse Ox 100% ; af2 05:00 BP 147 / 64 (auto/); af2 05:00 Pulse 120 MON; Resp 18 S; Pulse Ox 99% on 4 lpm NC; af2 05:30 BP 135 / 79 (auto/); af2 05:30 Pulse 118 MON; Resp 18 S; Pulse Ox 99% on 2 lpm NC; af2 06:30 BP 127 / 94 (auto/); af2 06:31 Pulse 128 MON; Resp 18; af2 06:35 Pulse Ox 100% ; af2 06:48 Pulse 122 MON; Pulse Ox 99% ; ja5 06:49 BP 142 / 91 (auto/); ja5 06:59 Pulse 123 MON; Pulse Ox 98% ; ja5 07:00 BP 133 / 86 (auto/); ja5 07:29 Pulse 125 MON; ja5 07:30 BP 138 / 92 (auto/); ja5 07:44 Pulse 128 MON; ja5 07:45 BP 138 / 79 (auto/); ja5 07:46 BP 138 / 79; Pulse 130; Resp 20; Temp 99.1(TE); Pulse Ox 92% on R/A; Pain 7; ja5 07:59 Pulse 120 MON; Pulse Ox 96% ; jc4 08:00 BP 144 / 71 (auto/); jc4 08:30 BP 128 / 93 (auto/); jc4 08:30 Pulse 124 MON; Pulse Ox 97% ; jc4 08:59 Pulse 129 MON; Pulse Ox 97% ; ja5 09:00 BP 147 / 96 (auto/); ja5 09:29 Pulse 123 MON; Pulse Ox 98% ; ja5 09:30 BP 147 / 82 (auto/); ja5 09:59 Pulse 127 MON; Pulse Ox 97% ; ja5 10:00 BP 139 / 77 (auto/); ja5 10:29 Pulse 124 MON; Pulse Ox 96% ; ja5 10:30 BP 138 / 74 (auto/); ja5 10:59 Pulse 119 MON; Pulse Ox 96% ; ja5 11:00 BP 131 / 95 (auto/); ja5 11:29 Pulse 120 MON; Pulse Ox 95% ; ja5 11:30 BP 137 / 85 (auto/); ja5 12:00 BP 154 / 80 (auto/); jc4 12:00 Pulse 107 MON; Pulse Ox 94% ; jc4 12:16 BP 154 / 80; Pulse 104; Resp 20; Temp 100.5(O); Pulse Ox 94% on 2 lpm NC; Pain 10; jc4 12:30 BP 141 / 84 (auto/); jc4 12:30 Pulse 113 MON; Pulse Ox 95% ; jc4 13:00 BP 152 / 69 (auto/); jc4 13:00 Pulse 119 MON; jc4 13:29 Pulse 123 MON; Pulse Ox 96% ; jc4 13:30 BP 158 / 67 (auto/); jc4 13:37 Temp 100.7(O); jc4 14:00 BP 166 / 77 (auto/); jc4 14:00 Pulse 126 MON; Pulse Ox 96% ; jc4 14:49 BP 140 / 76; Pulse 114; Resp 20; Temp 100.0(O); Pulse Ox 96% on R/A; jc4 11/19 22:26 Body Mass Index 34.46 (99.79 kg, 170.18 cm) ck1 MDM: 11/19 22:38 ECG WITH READING ER PHYS+CARDIAG ordered. EDMS 22:43 Consult PFS/PSA/Cigar Inspector ordered. cs11 22:49 Call Respiratory ordered. cs11 22:49 Chest, 2 View (pa\E\lat) Ordered. EDMS 22:49 -Arterial Blood Gas Ordered. EDMS 22:52 Call Respiratory complete. tm5 22:54 Consult PFS/PSA/Cigar Inspector complete. cl 23:09 -Arterial Blood Gas Reviewed. cs11 23:10 IV Saline Lock ordered. cs11 23:10 -Blood Culture (Adults Only), peripheral from different site, or from device/port/PICC cs11 etc. if present ordered. 23:12 Consult PFS/PSA/Cigar Inspector: Patient's case requires discussion with on-call cs11 Psychiatrist ordered. 23:12 PSA/PFS to call Nursing Bead Wire Insulator, to enter patient data on [place] if patient cs11 involuntarily admitted or transferred for SI or HI ordered. 23:12 Confirm accurate psychiatric medication list and times of last dosage ordered. cs11 23:12 Detain Pt Until Medically/PFS Cleared ordered. cs11 23:12 CBC with Diff Ordered. EDMS 23:12 -Blood Culture Ordered. EDMS 23:12 Acetaminophen Level Ordered. EDMS 23:12 Drug Eval Toxicology ED Only Ordered. EDMS 23:12 Ethyl Alcohol (ethanol) Ordered. EDMS 23:12 Liver Profile Ordered. EDMS 23:12 Salicylate Level Ordered. EDMS 23:17 Financial registration complete. [email or web address] 23:17 [place] [place] Payment Agreement was scanned into [employer] and attached to record. [email or web address] 23:18 BASIC METABOLIC PROFILE Ordered. EDMS 23:19 cefUROXime 1.5 grams IV at calculated rate once over 30 mins; dilute in 50mL of NS or cs11 D5W ordered. 23:19 azithromycin 500 mg IVPB once over 1 hrs; dilute in 250mL of D5W or NS ordered. cs11 23:30 DIFFERENTIAL NO CHARGE Ordered. EDMS 23:30 PLATELET ESTIMATE Ordered. EDMS 23:56 CBC with Diff Reviewed. cs11 23:56 Acetaminophen Level Reviewed. cs11 23:56 Liver Profile Reviewed. cs11 23:56 Salicylate Level Reviewed. cs11 23:56 BASIC METABOLIC PROFILE Reviewed. cs11 23:56 Ethyl Alcohol (ethanol) Reviewed. cs11 23:56 PLATELET ESTIMATE Reviewed. cs11 23:57 NS 0.9% 1000 ml IV at bolus once ordered. cs11 23:57 Metoprolol (Tartrate) 50 mg PO once ordered. cs11 23:58 -Influenza A&B Rapid Antigen - Nose Ordered. EDMS 11/20 00:01 -Blood Culture (Adults Only), peripheral from different site, or from device/port/PICC af2 etc. if present complete. 00:03 Consult PFS/PSA/Cigar Inspector: Patient's case requires discussion with on-call cl Psychiatrist complete. 00:03 PSA/PFS to call Nursing Bead Wire Insulator, to [place] if patient cl involuntarily admitted or transferred for SI or HI complete. 00:04 Ondansetron 4 mg IVP once ordered. sls1 00:12 THYROID PROFILE Ordered. EDMS 00:16 Acetaminophen Level Reviewed. cs11 00:16 Liver Profile Reviewed. cs11 00:16 Salicylate Level Reviewed. cs11 00:16 BASIC METABOLIC PROFILE Reviewed. cs11 00:16 Ethyl Alcohol (ethanol) Reviewed. cs11 00:26 Admission / Observation Status ordered. EDMS 00:45 Admission / Observation Status ordered. EDMS 01:06 ECHOCARD,DOPPLER/COLOR FLOW ordered. EDMS 01:06 2 GRAM SODIUM DIET ordered. EDMS 01:07 CARDIAC MARKER PANEL Ordered. EDMS 01:07 CARDIAC MARKER PANEL Ordered. EDMS 01:07 CARDIAC MARKER PANEL Ordered. EDMS 01:07 COMPLETE BLOOD COUNT Ordered. EDMS 01:07 BASIC METABOLIC PROFILE Ordered. EDMS 01:18 RESPIRATORY PANEL Ordered. EDMS 02:10 Acetaminophen Tablet 650 mg PO once ordered. af2 19:31 COMPLETE BLOOD COUNT Ordered. EDMS 19:31 BASIC METABOLIC PROFILE Ordered. EDMS 02 11:06 Change Status: ordered. EDMS 14:56 T-Sheet-- Draft Copy was scanned into [employer] and attached to record. 11/23 11:27 ECG/EKG was scanned into [employer] and attached to record. gb 11:28 Trend VS was scanned into [employer] and attached to record. gb Administered Medications: 11/20 00:09 Drug: NS 0.9% 1000 ml [sodium chloride 0.9 % intravenous solution] Route: IV; Rate: af2 bolus; Site: left antecubital; 00:09 Drug: Ondansetron 4 mg [ondansetron HCl 2 mg/mL intravenous solution (2 mL)] Route: af2 IVP; Site: left antecubital; 01:00 Follow up: Response: Nausea is decreased af2 00:53 Drug: cefUROXime 1.5 grams [cefuroxime sodium 1.5 gram solution for injection] Route: af2 IV; Rate: calculated rate; Infused Over: 30 mins; Site: left antecubital; 00:53 Drug: Metoprolol 50 mg [metoprolol tartrate 50 mg tablet (1 tabs)] Route: PO; af2 02:23 Drug: Acetaminophen 650 mg [acetaminophen 325 mg tablet (2 tabs)] Route: PO; af2 02:24 Drug: azithromycin 500 mg [azithromycin 500 mg intravenous solution] Route: IVPB; af2 Infused Over: 1 hrs; Site: left antecubital; Signatures: Dispatcher MedHo EDND Izzy Acevedo RN RN [facility] Tanmay Tresa RN MORENA daq Edith, Jose, PSA PSA cl Massiel Chery, Reg Reg gb Amy DavisRN RN ck1 Sally Marin, COMPOSITION WORKER COMPOSITION WORKER ar3 Serena Hale RN RN jc4 Miriam Hennessy RN RN sls1 Med Denson, DO cs11 Verenice DyerRN RN af2 Rabia Garcia, Reg Reg ks16 Hermelinda Mello,RN RN tm5 The chart was reviewed and I authenticate all verbal orders and agree with the evaluation and treatment provided.Corrections: (The following items were deleted from the chart) 11/19 23:18 23:12 BASIC METABOLIC PROFILE+LAB ordered. EDND EDND 23:12 COMPLETE BLOOD COUNT+LAB ordered. EDMS EDMS 11/20 00:12 11/19 23:12 THYROID STIMULATING HORMONE+LAB ordered. EDMS EDMS 11/20 00:12 11/19 23:56 THYROID STIMULATING HORMONE+LAB reviewed. cs11 EDMS 11/20 00:12 00:09 THYROID PROFILE+LAB ordered. EDMS EDMS : 11/19 23:17 [facility] Payment Agreement [email or web address] 11/21 14:56 T-Sheet-- Draft Copy gb 11/23 11:27 ECG/EKG gb Chart Complete MTDD
--- NOTE | 2016-11-23 19:12 | EDDOCDS ---
Physician Documentation [facility] Name: Ana Storm Age: 36 yrs Sex: Male : 1980 Arrival Date: 11/19/2016 Time: 22:13 Bed Admit Hold Private MD: Disposition: 11/20/16 00:15 Hospitalization ordered by Severo Melo for Inpatient Admission. Preliminary diagnosis are Pneumonia in diseases classified elsewhere, Hypoxemia, Other psychoactive substance abuse. - Bed requested for PCU. - Status is Inpatient Admission. [facility] - Condition is Stable. - Problem is an ongoing problem. - Symptoms have improved. Historical: - Allergies: no known allergies; - Home Meds: 1. tramadol 50 mg Oral TbDL Unknown four times a day 2. Xanax 1 mg Oral tab Unknown four times a day 3. Prilosec 20 mg Oral cpDR 1 cap once daily (Last dose: 11/19/2016) 4. Adderall XR 20 mg Oral cp24 1 cap twice a day (Last dose: 11/19/2016) - PMHx: Hypertension; Substance Abuse; - PSHx: Appendectomy; - Social history: Smoking status: Patient uses tobacco products, current some day smoker. Patient uses street drugs, marijuana, No barriers to communication noted, The patient speaks fluent Scottish, Speaks appropriately for age. - Family history: Not pertinent. - : The pt / caregiver states he / she is not on anticoagulants. Home medication list is obtained from the patient. - Exposure Risk Screening:: None identified. Vital Signs: 11/19 22:25 Pulse Ox 79% on R/A; af2 22:26 BP 167 / 86; Pulse 98; Resp 18; Temp 97.8(O); Weight 99.79 kg / 220 lbs; Height 5 ft. 7 ck1 in. (170.18 cm); 22:30 BP 147 / 70 (auto/); af2 22:31 Pulse Ox 100% ; af2 22:35 BP 158 / 88 (auto/); af2 22:35 Pulse 142 MON; Pulse Ox 81% ; af2 22:46 Pulse Ox 94% on 6 lpm NC; af2 22:46 Pulse 129; af2 23:00 BP 160 / 75 (auto/); af2 23:00 Pulse 133 MON; Pulse Ox 97% ; af2 23:30 BP 178 / 94 (auto/); af2 23:30 Pulse 143 MON; Resp 18 S; Pulse Ox 92% on 6 lpm NC; af2 0217 00:00 BP 167 / 92 (auto/); af2 00:00 Pulse 124 MON; Resp 18 S; Pulse Ox 99% on 6 lpm NC; af2 00:29 Pulse 135 MON; af2 00:30 BP 177 / 102 (auto/); af2 00:43 BP 177 / 102; Pulse 144; Resp 18 S; Temp 100.9(TE); Pulse Ox 100% on 6 lpm NC; af2 01:30 BP 192 / 101 (auto/); af2 01:30 Pulse 133 MON; Resp 18 S; Pulse Ox 99% on 4 lpm NC; af2 02:00 BP 198 / 87 (auto/); af2 02:00 Pulse 149 MON; Resp 18 S; Pulse Ox 97% on 4 lpm NC; af2 02:17 BP 168 / 88 (auto/); af2 02:17 Pulse 144 MON; Resp 18 S; Pulse Ox 99% on 4 lpm NC; af2 02:30 BP 165 / 89 (auto/); af2 02:30 Pulse 129 MON; Resp 18 S; Pulse Ox 98% on 4 lpm NC; af2 03:00 BP 152 / 90 (auto/); af2 03:01 Pulse 127 MON; Temp 97.8(TE); Pulse Ox 95% ; af2 03:30 BP 140 / 88 (auto/); af2 03:30 Pulse 117 MON; Pulse Ox 94% ; af2 04:00 BP 130 / 84 (auto/); af2 04:00 Pulse 116 MON; Resp 18 S; Pulse Ox 94% on 4 lpm NC; af2 04:30 BP 151 / 72 (auto/); af2 04:30 Pulse 120 MON; Pulse Ox 100% ; af2 05:00 BP 147 / 64 (auto/); af2 05:00 Pulse 120 MON; Resp 18 S; Pulse Ox 99% on 4 lpm NC; af2 05:30 BP 135 / 79 (auto/); af2 05:30 Pulse 118 MON; Resp 18 S; Pulse Ox 99% on 2 lpm NC; af2 06:30 BP 127 / 94 (auto/); af2 06:31 Pulse 128 MON; Resp 18; af2 06:35 Pulse Ox 100% ; af2 06:48 Pulse 122 MON; Pulse Ox 99% ; ja5 06:49 BP 142 / 91 (auto/); ja5 06:59 Pulse 123 MON; Pulse Ox 98% ; ja5 07:00 BP 133 / 86 (auto/); ja5 07:29 Pulse 125 MON; ja5 07:30 BP 138 / 92 (auto/); ja5 07:44 Pulse 128 MON; ja5 07:45 BP 138 / 79 (auto/); ja5 07:46 BP 138 / 79; Pulse 130; Resp 20; Temp 99.1(TE); Pulse Ox 92% on R/A; Pain 7; ja5 07:59 Pulse 120 MON; Pulse Ox 96% ; jc4 08:00 BP 144 / 71 (auto/); jc4 08:30 BP 128 / 93 (auto/); jc4 08:30 Pulse 124 MON; Pulse Ox 97% ; jc4 08:59 Pulse 129 MON; Pulse Ox 97% ; ja5 09:00 BP 147 / 96 (auto/); ja5 09:29 Pulse 123 MON; Pulse Ox 98% ; ja5 09:30 BP 147 / 82 (auto/); ja5 09:59 Pulse 127 MON; Pulse Ox 97% ; ja5 10:00 BP 139 / 77 (auto/); ja5 10:29 Pulse 124 MON; Pulse Ox 96% ; ja5 10:30 BP 138 / 74 (auto/); ja5 10:59 Pulse 119 MON; Pulse Ox 96% ; ja5 11:00 BP 131 / 95 (auto/); ja5 11:29 Pulse 120 MON; Pulse Ox 95% ; ja5 11:30 BP 137 / 85 (auto/); ja5 12:00 BP 154 / 80 (auto/); jc4 12:00 Pulse 107 MON; Pulse Ox 94% ; jc4 12:16 BP 154 / 80; Pulse 104; Resp 20; Temp 100.5(O); Pulse Ox 94% on 2 lpm NC; Pain 10; jc4 12:30 BP 141 / 84 (auto/); jc4 12:30 Pulse 113 MON; Pulse Ox 95% ; jc4 13:00 BP 152 / 69 (auto/); jc4 13:00 Pulse 119 MON; jc4 13:29 Pulse 123 MON; Pulse Ox 96% ; jc4 13:30 BP 158 / 67 (auto/); jc4 13:37 Temp 100.7(O); jc4 14:00 BP 166 / 77 (auto/); jc4 14:00 Pulse 126 MON; Pulse Ox 96% ; jc4 14:49 BP 140 / 76; Pulse 114; Resp 20; Temp 100.0(O); Pulse Ox 96% on R/A; jc4 11/19 22:26 Body Mass Index 34.46 (99.79 kg, 170.18 cm) ck1 MDM: 11/19 22:38 ECG WITH READING ER PHYS+CARDIAG ordered. EDMS 22:43 Consult PFS/PSA/Media Librarian ordered. cs11 22:49 Call Respiratory ordered. cs11 22:49 Chest, 2 View (pa\E\lat) Ordered. EDMS 22:49 -Arterial Blood Gas Ordered. EDMS 22:52 Call Respiratory complete. tm5 22:54 Consult PFS/PSA/Media Librarian complete. cl 23:09 -Arterial Blood Gas Reviewed. cs11 23:10 IV Saline Lock ordered. cs11 23:10 -Blood Culture (Adults Only), peripheral from different site, or from device/port/PICC cs11 etc. if present ordered. 23:12 Consult PFS/PSA/Media Librarian: Patient's case requires discussion with on-call cs11 Psychiatrist ordered. 23:12 PSA/PFS to call Nursing Suppression Crew Leader, to enter [place] data [place] if patient cs11 involuntarily admitted or transferred for SI or HI ordered. 23:12 Confirm accurate psychiatric medication list and times of last dosage ordered. cs11 23:12 Detain Pt Until Medically/PFS Cleared ordered. cs11 23:12 CBC with Diff Ordered. EDMS 23:12 -Blood Culture Ordered. EDMS 23:12 Acetaminophen Level Ordered. EDMS 23:12 Drug Eval Toxicology ED Only Ordered. EDMS 23:12 Ethyl Alcohol (ethanol) Ordered. EDMS 23:12 Liver Profile Ordered. EDMS 23:12 Salicylate Level Ordered. EDMS 23:17 Financial registration complete. [email or web address] 23:17 [place] [place] was scanned into [employer] and attached to record. [email or web address] 23:18 BASIC METABOLIC PROFILE Ordered. EDMS 23:19 cefUROXime 1.5 grams IV at calculated rate once over 30 mins; dilute in 50mL of NS or cs11 D5W ordered. 23:19 azithromycin 500 mg IVPB once over 1 hrs; dilute in 250mL of D5W or NS ordered. cs11 23:30 DIFFERENTIAL NO CHARGE Ordered. EDMS 23:30 PLATELET ESTIMATE Ordered. EDMS 23:56 CBC with Diff Reviewed. cs11 23:56 Acetaminophen Level Reviewed. cs11 23:56 Liver Profile Reviewed. cs11 23:56 Salicylate Level Reviewed. cs11 23:56 BASIC METABOLIC PROFILE Reviewed. cs11 23:56 Ethyl Alcohol (ethanol) Reviewed. cs11 23:56 PLATELET ESTIMATE Reviewed. cs11 23:57 NS 0.9% 1000 ml IV at bolus once ordered. cs11 23:57 Metoprolol (Tartrate) 50 mg PO once ordered. cs11 23:58 -Influenza A&B Rapid Antigen - Nose Ordered. EDMS 11/20 00:01 -Blood Culture (Adults Only), peripheral from different site, or from device/port/PICC af2 etc. if present complete. 00:03 Consult PFS/PSA/Media Librarian: Patient's case requires discussion with on-call cl Psychiatrist complete. 00:03 PSA/PFS to call Nursing Suppression Crew Leader, to enter [place] data [place] if patient cl involuntarily admitted or transferred for SI or HI complete. 00:04 Ondansetron 4 mg IVP once ordered. sls1 00:12 THYROID PROFILE Ordered. EDMS 00:16 Acetaminophen Level Reviewed. cs11 00:16 Liver Profile Reviewed. cs11 00:16 Salicylate Level Reviewed. cs11 00:16 BASIC METABOLIC PROFILE Reviewed. cs11 00:16 Ethyl Alcohol (ethanol) Reviewed. cs11 00:26 Admission / Observation Status ordered. EDMS 00:45 Admission / Observation Status ordered. EDMS 01:06 ECHOCARD,DOPPLER/COLOR FLOW ordered. EDMS 01:06 2 GRAM SODIUM DIET ordered. EDMS 01:07 CARDIAC MARKER PANEL Ordered. EDMS 01:07 CARDIAC MARKER PANEL Ordered. EDMS 01:07 CARDIAC MARKER PANEL Ordered. EDMS 01:07 COMPLETE BLOOD COUNT Ordered. EDMS 01:07 BASIC METABOLIC PROFILE Ordered. EDMS 01:18 RESPIRATORY PANEL Ordered. EDMS 02:10 Acetaminophen Tablet 650 mg PO once ordered. af2 19:31 COMPLETE BLOOD COUNT Ordered. EDMS 19:31 BASIC METABOLIC PROFILE Ordered. EDMS 02 11:06 Change Status: ordered. EDMS 14:56 T-Sheet-- Draft Copy was scanned into [employer] and attached to record. 11/23 11:27 ECG/EKG was scanned into [employer] and attached to record. gb 11:28 Trend VS was scanned into [employer] and attached to record. gb Administered Medications: 11/20 00:09 Drug: NS 0.9% 1000 ml [sodium chloride 0.9 % intravenous solution] Route: IV; Rate: af2 bolus; Site: left antecubital; 00:09 Drug: Ondansetron 4 mg [ondansetron HCl 2 mg/mL intravenous solution (2 mL)] Route: af2 IVP; Site: left antecubital; 01:00 Follow up: Response: Nausea is decreased af2 00:53 Drug: cefUROXime 1.5 grams [cefuroxime sodium 1.5 gram solution for injection] Route: af2 IV; Rate: calculated rate; Infused Over: 30 mins; Site: left antecubital; 00:53 Drug: Metoprolol 50 mg [metoprolol tartrate 50 mg tablet (1 tabs)] Route: PO; af2 02:23 Drug: Acetaminophen 650 mg [acetaminophen 325 mg tablet (2 tabs)] Route: PO; af2 02:24 Drug: azithromycin 500 mg [azithromycin 500 mg intravenous solution] Route: IVPB; af2 Infused Over: 1 hrs; Site: left antecubital; Signatures: Dispatcher MedHo EDNC Izzy Acevedo RN RN [facility] Tanmay Tresa RN MORENA daq Edith, Jose, PSA PSA cl Massiel Chery, Reg Reg gb Amy DavisRN RN ck1 Sally Marin, PRIVATE SECTOR EXECUTIVE PRIVATE SECTOR EXECUTIVE ar3 Serena Hale RN RN jc4 Miriam Hennessy RN RN sls1 Med Denson, DO cs11 Verenice DyerRN RN af2 Rabia Garcia, Reg Reg ks16 Hermelinda Mello,RN RN tm5 The chart was reviewed and I authenticate all verbal orders and agree with the evaluation and treatment provided.Corrections: (The following items were deleted from the chart) 11/19 23:18 23:12 BASIC METABOLIC PROFILE+LAB ordered. EDNC EDNC 23:12 COMPLETE BLOOD COUNT+LAB ordered. EDMS EDMS 11/20 00:12 11/19 23:12 THYROID STIMULATING HORMONE+LAB ordered. EDMS EDMS 11/20 00:12 11/19 23:56 THYROID STIMULATING HORMONE+LAB reviewed. cs11 EDMS 11/20 00:12 00:09 THYROID PROFILE+LAB ordered. EDMS EDMS : 11/19 23:17 [facility] Payment Agreement [email or web address] 11/21 14:56 T-Sheet-- Draft Copy gb 11/23 11:27 ECG/EKG gb Chart Complete MTDD
--- NOTE | 2016-11-23 19:13 | EDDOCDS ---
Nurse's Notes [facility] Name: Ana Seaman Age: 36 yrs Sex: Male : 1980 Arrival Date: 11/19/2016 Time: 22:13 Bed Admit Hold Private MD: Diagnosis: Pneumonia in diseases classified elsewhere;Hypoxemia;Other psychoactive substance abuse Presentation: 11/19 22:19 Presenting complaint: Father states: Found unconscious at home, brought to ED, refused ck1 treatment. Patient states he has now changed his mind and wishes to be "checked out". Presenting complaint: Patient states he took 3 of his Xanax, 4 tramadol, "smoked some weed" and drank 2 beers. Presenting complaint: Patient states he was "stressed out" and wanted "to go numb" denies SI. Adult Sepsis Screening: The patient does not have new or worsening altered mentation. Patient's respiratory rate is less than 22. Systolic blood pressure is greater than 100. Patient has a qSOFA score of 0- Negative Sepsis Screen. Suicide/Homicide risk assessment- the patient denies having any suicidal and/or homicidal ideations and does not present with any other emotional, behavioral or mental health complaints. Status: Patient is not a social services aide or dependent. Transition of care: patient was not received from another setting of care. 22:19 Acuity: JOSE ROBERTO Level 3 ck1 22:19 Method Of Arrival: Walkin/Carried/Asstd ck1 Triage Assessment: 22:23 General: Appears in no apparent distress, comfortable, Behavior is appropriate for age, ck1 cooperative. Pain: Location: head Pain currently is 7 out of 10 on a pain scale. HIV screening NA for this visit Offered previously. Neurological: Level of Consciousness is awake, alert, obeys commands, Oriented to person, place, time. Respiratory: Respiratory effort is unlabored, Respiratory pattern is regular, symmetrical. GI: Denies nausea, vomiting. Derm: Skin is intact, is healthy with good turgor, Skin is pink, warm & dry. Historical: - Allergies: no known allergies; - Home Meds: 1. tramadol 50 mg Oral TbDL Unknown four times a day 2. Xanax 1 mg Oral tab Unknown four times a day 3. Prilosec 20 mg Oral cpDR 1 cap once daily (Last dose: 11/19/2016) 4. Adderall XR 20 mg Oral cp24 1 cap twice a day (Last dose: 11/19/2016) - PMHx: Hypertension; Substance Abuse; - PSHx: Appendectomy; - Social history: Smoking status: Patient uses tobacco products, current some day smoker. Patient uses street drugs, marijuana, No barriers to communication noted, The patient speaks fluent Maltese, Speaks appropriately for age. - Family history: Not pertinent. - : The pt / caregiver states he / she is not on anticoagulants. Home medication list is obtained from the patient. - Exposure Risk Screening:: None identified. Screenin:46 Screening information is obtained from the patient. Fall risk: At risk due to prior af2 history of falls, The following interventions are performed due to a positive Fall Risk Screen: Fall Risk is added to Special Handling on the patient Summary Screen. A Fall Risk Bracelet was applied to the patient. Side Rails are placed in the up position. A Call Gilbert is given with instruction to call for help when getting out of bed. Assistance ADL's: requires no assistance with activities of daily living. Abuse/DV Screen: The patient / caregiver reports he/she is: not in a situation that causes fear, pain or injury. Nutritional screening: No deficits noted. Advance Directives: Currently, there is no health care proxy. home support is adequate. Assessment: 22:49 General: provider notified of 79% O2 on RA, pt placed on 6L NC, O2 sats improved to af2 93%.. 23:08 General: pt resting quietly on stretcher, resp easy and unlabored.. Neurological: Level af2 of Consciousness is awake, alert. Cardiovascular: Rhythm is sinus tachycardia. Respiratory: Denies shortness of breath. Derm: Skin is normal. 11/20 00:09 General: Appears uncomfortable, Behavior is cooperative, pt had large episode of af2 emesis, undigested food. medicated per order.. Neurological: Level of Consciousness is awake, alert. Cardiovascular: Rhythm is sinus tachycardia. Respiratory: Airway is patent Respiratory effort is even, unlabored, Breath sounds are clear bilaterally. Derm: Skin is normal. 00:41 General: Appears uncomfortable, Behavior is cooperative. Neurological: Level of af2 Consciousness is awake, alert. Respiratory: Airway is patent Respiratory effort is even, unlabored. Derm: Skin is normal. 01:21 General: pt family leaving at this time. for any change in condition or pt agitation af2 call Melody at [phone] or dad Zachariah [phone]. 02:31 General: Appears in no apparent distress, Behavior is cooperative. General:. af2 Neurological: Level of Consciousness is awake, alert. Respiratory: Airway is patent Respiratory effort is even, unlabored. Derm: Skin is normal. 03:30 General: Appears in no apparent distress, Behavior is cooperative. Neurological: Level af2 of Consciousness is awake, alert. Cardiovascular: Rhythm is sinus tachycardia. Respiratory: Airway is patent Respiratory effort is even, unlabored. Derm: Skin is normal. 04:45 General: Appears in no apparent distress, Behavior is cooperative, pt resting quietly af2 with eyes closed, resp easy and unlabored.. Neurological: Level of Consciousness is awake, alert. Cardiovascular: Rhythm is sinus tachycardia No ectopy. Derm: Skin is normal. 05:45 General: Appears in no apparent distress, Behavior is cooperative. Neurological: Level af2 of Consciousness is awake, alert. Cardiovascular: Rhythm is sinus tachycardia. Respiratory: Airway is patent Respiratory effort is even, unlabored. Derm: Skin is normal. 06:46 General: Appears in no apparent distress, Behavior is cooperative. Neurological: Level af2 of Consciousness is awake, alert. Cardiovascular: Rhythm is sinus tachycardia No ectopy. Respiratory: Airway is patent Respiratory effort is even, unlabored. Derm: Skin is normal. 07:47 General: Appears in no apparent distress, comfortable, Behavior is cooperative. Pain: ja5 Location: head Pain currently is 7 out of 10 on a pain scale. Neurological: Level of Consciousness is awake, alert, Oriented to person, place, time. Cardiovascular: Heart tones S1 S2 present Rhythm is atrial fibrillation with rapid ventricular response. Respiratory: Airway is patent Respiratory effort is even, unlabored, Breath sounds are clear bilaterally. Derm: Skin is pink, warm & dry. 07:56 General: O2 sat was 92% on RA. 2L O2 NC placed on patient to increase O2 sat to 96%.. ja5 08:50 General: Pt resting on stretcher. No distress noted at this time. Color pink, skin warm jc4 and dry. Respirations easy and full. site monitor - atrial fibrillation with RVR. IVF infusing well, site clear. 09:30 General: Appears in no apparent distress, comfortable. Neurological: Level of jc4 Consciousness is awake, alert, Oriented to person, place, time. Cardiovascular: Rhythm is atrial fibrillation with rapid ventricular response. Respiratory: Airway is patent Respiratory effort is even, unlabored. Derm: Skin is pink, warm & dry. 10:30 Reassessment: Patient appears in no apparent distress at this time. jc4 11:34 General: Patient is resting in stretcher, states that he is very uncomfortable and ja5 cold. He was given some warm blankets and his position was changed. He stated that the position change and warm blankets helped. HR 117 afib on cardica monitior, O2 sat 94% on 2L O2 NC with even unlabored respirations. Bed in low position, call gilbert in reach, family at bedside.. 12:21 General: Pt ambulatory to bathroom. Gait steady. Pt states feels chills. Color pink, jc4 skin warm and dry. Respirations easy and full. site monitor - atrial fibrillation with RVR. Pt states is feeling mildly anxious and has been medicated with Ativan per order. Pt cooperative. at bedside. 13:30 Reassessment: Patient appears in no apparent distress at this time. jc4 14:49 General: Pt ambulatory to bathroom. No distress noted at this time. Color pink, skin jc4 warm and dry. Respirations easy and full. site monitor - atrial fibrillation with RVR. Pt denies any shortness of breath. States that back is uncomfortable due to ER stretcher. Pt moved to hospital bed and oriented to Room 20. Call gilbert in reach. Vital Signs: 11/19 22:25 Pulse Ox 79% on R/A; af2 22:26 BP 167 / 86; Pulse 98; Resp 18; Temp 97.8(O); Weight 99.79 kg; Height 5 ft. 7 in. ck1 (170.18 cm); 22:30 BP 147 / 70 (auto/); af2 22:31 Pulse Ox 100% ; af2 22:35 BP 158 / 88 (auto/); af2 22:35 Pulse 142 MON; Pulse Ox 81% ; af2 22:46 Pulse Ox 94% on 6 lpm NC; af2 22:46 Pulse 129; af2 23:00 BP 160 / 75 (auto/); af2 23:00 Pulse 133 MON; Pulse Ox 97% ; af2 23:30 BP 178 / 94 (auto/); af2 23:30 Pulse 143 MON; Resp 18 S; Pulse Ox 92% on 6 lpm NC; af2 17 00:00 BP 167 / 92 (auto/); af2 00:00 Pulse 124 MON; Resp 18 S; Pulse Ox 99% on 6 lpm NC; af2 00:29 Pulse 135 MON; af2 00:30 BP 177 / 102 (auto/); af2 00:43 BP 177 / 102; Pulse 144; Resp 18 S; Temp 100.9(TE); Pulse Ox 100% on 6 lpm NC; af2 01:30 BP 192 / 101 (auto/); af2 01:30 Pulse 133 MON; Resp 18 S; Pulse Ox 99% on 4 lpm NC; af2 02:00 BP 198 / 87 (auto/); af2 02:00 Pulse 149 MON; Resp 18 S; Pulse Ox 97% on 4 lpm NC; af2 02:17 BP 168 / 88 (auto/); af2 02:17 Pulse 144 MON; Resp 18 S; Pulse Ox 99% on 4 lpm NC; af2 02:30 BP 165 / 89 (auto/); af2 02:30 Pulse 129 MON; Resp 18 S; Pulse Ox 98% on 4 lpm NC; af2 03:00 BP 152 / 90 (auto/); af2 03:01 Pulse 127 MON; Temp 97.8(TE); Pulse Ox 95% ; af2 03:30 BP 140 / 88 (auto/); af2 03:30 Pulse 117 MON; Pulse Ox 94% ; af2 04:00 BP 130 / 84 (auto/); af2 04:00 Pulse 116 MON; Resp 18 S; Pulse Ox 94% on 4 lpm NC; af2 04:30 BP 151 / 72 (auto/); af2 04:30 Pulse 120 MON; Pulse Ox 100% ; af2 05:00 BP 147 / 64 (auto/); af2 05:00 Pulse 120 MON; Resp 18 S; Pulse Ox 99% on 4 lpm NC; af2 05:30 BP 135 / 79 (auto/); af2 05:30 Pulse 118 MON; Resp 18 S; Pulse Ox 99% on 2 lpm NC; af2 06:30 BP 127 / 94 (auto/); af2 06:31 Pulse 128 MON; Resp 18; af2 06:35 Pulse Ox 100% ; af2 06:48 Pulse 122 MON; Pulse Ox 99% ; ja5 06:49 BP 142 / 91 (auto/); ja5 06:59 Pulse 123 MON; Pulse Ox 98% ; ja5 07:00 BP 133 / 86 (auto/); ja5 07:29 Pulse 125 MON; ja5 07:30 BP 138 / 92 (auto/); ja5 07:44 Pulse 128 MON; ja5 07:45 BP 138 / 79 (auto/); ja5 07:46 BP 138 / 79; Pulse 130; Resp 20; Temp 99.1(TE); Pulse Ox 92% on R/A; Pain 7/10; ja5 07:59 Pulse 120 MON; Pulse Ox 96% ; jc4 08:00 BP 144 / 71 (auto/); jc4 08:30 BP 128 / 93 (auto/); jc4 08:30 Pulse 124 MON; Pulse Ox 97% ; jc4 08:59 Pulse 129 MON; Pulse Ox 97% ; ja5 09:00 BP 147 / 96 (auto/); ja5 09:29 Pulse 123 MON; Pulse Ox 98% ; ja5 09:30 BP 147 / 82 (auto/); ja5 09:59 Pulse 127 MON; Pulse Ox 97% ; ja5 10:00 BP 139 / 77 (auto/); ja5 10:29 Pulse 124 MON; Pulse Ox 96% ; ja5 10:30 BP 138 / 74 (auto/); ja5 10:59 Pulse 119 MON; Pulse Ox 96% ; ja5 11:00 BP 131 / 95 (auto/); ja5 11:29 Pulse 120 MON; Pulse Ox 95% ; ja5 11:30 BP 137 / 85 (auto/); ja5 12:00 BP 154 / 80 (auto/); jc4 12:00 Pulse 107 MON; Pulse Ox 94% ; jc4 12:16 BP 154 / 80; Pulse 104; Resp 20; Temp 100.5(O); Pulse Ox 94% on 2 lpm NC; Pain 7/10; jc4 12:30 BP 141 / 84 (auto/); jc4 12:30 Pulse 113 MON; Pulse Ox 95% ; jc4 13:00 BP 152 / 69 (auto/); jc4 13:00 Pulse 119 MON; jc4 13:29 Pulse 123 MON; Pulse Ox 96% ; jc4 13:30 BP 158 / 67 (auto/); jc4 13:37 Temp 100.7(O); jc4 14:00 BP 166 / 77 (auto/); jc4 14:00 Pulse 126 MON; Pulse Ox 96% ; jc4 14:49 BP 140 / 76; Pulse 114; Resp 20; Temp 100.0(O); Pulse Ox 96% on R/A; jc4 11/19 22:26 Body Mass Index 34.46 (99.79 kg, 170.18 cm) ck1 Vitals: 00:41 Log In Time N/A - ambulance arrival. af2 ED Course: 11/19 22:18 Patient visited by Brenda Boland. zo 22:18 Patient moved to Waiting 22:22 Triage Initiated ck1 22:24 Verenice DyerRN is Primary Nurse. ck1 22:24 Patient moved to 2 ck1 22:35 Missed attempts: 18 gauge X 1 in right antecubital area, Bleeding controlled, band aid af2 applied, catheter tip intact. 22:39 EKG done. (by ED staff). Reviewed by Дмитрий Hall MD. nb2 22:42 Kristy Thurman DO is Attending Physician. cs11 22:42 Patient visited by Kristy Thurman DO. cs11 22:43 Patient visited by Stacy Dumont. nb2 22:47 Patient visited by Verenice Dyre RN. af2 22:49 Patient visited by Verenice Dyer RN. af2 22:50 Patient visited by Verenice Dyer RN. af2 22:50 No procedures done that require assistance. af2 23:08 Patient visited by Verenice Dyer RN. af2 23:13 Acetaminophen Level Sent. af2 23:13 Ethyl Alcohol (ethanol) Sent. af2 23:13 Liver Profile Sent. af2 23:13 Salicylate Level Sent. af2 23:13 CBC with Diff Sent. af2 23:17 [facility] Payment Agreement was scanned into [employer] and attached to record. ks16 11/20 00:01 DIFFERENTIAL NO CHARGE Sent. af2 00:09 Patient visited by Verenice Dyer RN. af2 00:11 Patient visited by Verenice Dyer RN. af2 00:14 Severo Melo DO is Hospitalizing Provider. cs11 00:40 -Influenza A&B Rapid Antigen - Nose Sent. af2 00:41 The patient / caregiver is instructed regarding the plan of care and ED course. af2 00:59 Patient visited by Verenice Dyer RN. af2 01:14 Patient moved to Admit Hold sls1 02:32 Patient visited by Verenice Dyer RN. af2 05:13 Patient visited by Verenice Dyer RN. af2 06:33 Patient visited by Verenice Dyer RN. af2 06:47 Patient visited by Verenice Dyer RN. af2 07:06 Letitia Owens RN is Primary Nurse. ja5 07:15 Serena Hale RN is Primary Nurse. jc4 08:16 Chest, 2 View (pa\\E\\lat) Returned. EDMS 11:34 Patient visited by Letitia Owens RN. ja5 12:35 Primary Nurse role handed off by Verenice Dyer RN jc4 19:09 Primary Nurse role handed off by Serena Hale RN jc4 19:10 Primary Nurse role handed off by Letitia Owens RN jc4 20:03 EKG-ADULT Returned. EDMS 11/21 09:26 ECHOCARD,DOPPLER/COLOR FLOW Returned. EDMS 14:56 T-Sheet-- Draft Copy was scanned into [employer] and attached to record. gb 11/23 11:27 ECG/EKG was scanned into [employer] and attached to record. gb 11:28 Trend VS was scanned into [employer] and attached to record. gb Administered Medications: 11/20 00:09 Drug: NS 0.9% 1000 ml [sodium chloride 0.9 % intravenous solution] Route: IV; Rate: af2 bolus; Site: left antecubital; 00:09 Drug: Ondansetron 4 mg [ondansetron HCl 2 mg/mL intravenous solution (2 mL)] Route: af2 IVP; Site: left antecubital; 01:00 Follow up: Response: Nausea is decreased af2 00:53 Drug: cefUROXime 1.5 grams [cefuroxime sodium 1.5 gram solution for injection] Route: af2 IV; Rate: calculated rate; Infused Over: 30 mins; Site: left antecubital; 00:53 Drug: Metoprolol 50 mg [metoprolol tartrate 50 mg tablet (1 tabs)] Route: PO; af2 02:23 Drug: Acetaminophen 650 mg [acetaminophen 325 mg tablet (2 tabs)] Route: PO; af2 02:24 Drug: azithromycin 500 mg [azithromycin 500 mg intravenous solution] Route: IVPB; af2 Infused Over: 1 hrs; Site: left antecubital; Attachments: 11:28 Trend VS gb Intake: 11/20 13:36 IV: 1000.00ml; Total: 1000.00ml. jc4 13:36 IV: 500.00ml (NS); Total: 1500.00ml. jc4 13:36 Banana Bag jc4 Output: 12:21 Urine: 800.00ml (Voided); Total: 800.00ml. jc4 13:36 Banana Bag jc4 RT: 11/19 23:00 ABG's drawn from right radial artery pressure held for 5 minutes no bleeding noted jh6 pressure bandage applied specimen sent pt. tolerated well. Order Results: Lab Order: -Arterial Blood Gas; SPEC'M 11/19/16 22:55 Test: ABG pH (ARTERIAL); Value: 7.328; Range: 7.350-7.450; Abnormal: Below low normal; Units: UNITS; Status: F Test: ABG PARTIAL PRESSURE CO2; Value: 48.9; Range: 35.0-45.0; Abnormal: Above high normal; Units: mmHg; Status: F Test: ABG PARTIAL PRESSURE O2; Value: 74.9; Range: 75.0-100.0; Abnormal: Below low normal; Units: mmHg; Status: F Test: ABG TOTAL CO2; Value: 26.6; Range: 22.0-29.0; Units: MEQ/L; Status: F Test: ABG HCO3; Value: 25.1; Range: 22.0-26.0; Units: MEQ/L; Status: F Test: ABG BASE EXCESS; Value: -1.4; Range: -2.0-2.0; Status: F Test: ABG STANDARD HCO3; Value: 23.2; Range: 22.0-26.0; Units: MEQ/L; Status: F Test: ABG O2 SATURATION; Value: 94.6; Range: 95.0-99.0; Abnormal: Below low normal; Units: %; Status: F Test: ABG DEVICE; Value: NASAL [place]; Status: F Lab Order: CBC with Diff; SPEC'M 11/19/16 22:35 Test: WHITE BLOOD COUNT; Value: 8.1; Range: 4.0-10.0; Units: K/mm3; Status: F Test: RED BLOOD COUNT; Value: 4.88; Range: 4.30-6.10; Units: M/mm3; Status: F Test: HEMOGLOBIN; Value: 14.9; Range: 14.0-18.0; Units: g/dl; Status: F Test: HEMATOCRIT; Value: 46.8; Range: 42.0-52.0; Units: %; Status: F Test: MEAN CORPUSCULAR VOLUME; Value: 95.9; Range: 80.0-96.0; Units: fl; Status: F Test: MEAN CORPUSCULAR HEMOGLOBIN; Value: 30.4; Range: 27.0-33.0; Units: pg; Status: F Test: MEAN CORPUSCULAR HGB CONC; Value: 31.7; Range: 32.0-36.5; Abnormal: Below low normal; Units: g/dl; Status: F Test: RED CELL DISTRIBUTION WIDTH; Value: 12.6; Range: 11.5-14.5; Units: %; Status: F Test: PLATELET COUNT, AUTOMATED; Value: 360; Range: 150-450; Units: k/mm3; Status: F Test: PLATELET ESTIMATE; Range: NORMAL; Status: I Test: NEUTROPHILS; Value: 74; Range: 35-75; Units: %; Status: F Test: BANDS; Value: 2; Range: < 11; Units: %; Status: F Test: LYMPHOCYTES; Value: 16; Range: 16-52; Units: %; Status: F Test: MONOCYTES; Value: 6; Range: 0-8; Units: %; Status: F Test: EOSINOPHILS; Value: 1; Range: 0-5; Units: %; Status: F Test: BASOPHILS; Value: 1; Range: 0-4; Units: %; Status: F Test: PLATELET CLUMPS; Value: SMALL AMT; Status: F Lab Order: -Blood Culture; SPEC'M 11/19/16 23:44 Test: BLOOD CULTURE; Value: No growth after 24 hours . All specimens observed; Status: F Test: BLOOD CULTURE; Value: for 7 days. Results final at that time.; Status: F Lab Order: Acetaminophen Level; SPEC'M 11/19/16 22:35 Test: ACETAMINOPHEN LEVEL; Value: < 2.0; Range: 10.0-30.0; Abnormal: Below low normal; Units: UG/ML; Status: F Lab Order: Drug Eval Toxicology ED Only; SPEC'M 11/20/16 12:00 Test: AMPHETAMINES LEVEL URINE; Value: POSITIVE; Range: NEGATIVE; Abnormal: Above high normal; Status: F Test: BARBITURATES URINE; Value: NEGATIVE; Range: NEGATIVE; Status: F Test: BENZODIAZEPINES URINE; Value: POSITIVE; Range: NEGATIVE; Abnormal: Above high normal; Status: F Test: CANNABINOIDS URINE; Value: POSITIVE; Range: NEGATIVE; Abnormal: Above high normal; Status: F Test: COCAINE METABOLITE URINE; Value: NEGATIVE; Range: NEGATIVE; Status: F Test: METHADONE URINE; Value: NEGATIVE; Range: NEGATIVE; Status: F Test: OPIATES URINE; Value: POSITIVE; Range: NEGATIVE; Abnormal: Above high normal; Status: F Test: TRICYCLIC ANTIDEPRESS URINE; Value: NEGATIVE; Range: NEGATIVE; Status: F Test Note: ; FALSE POSITIVE RESULTS CAN BE CAUSED BY THE USE OF PANTOPRAZOLE (PROTONIX). Lab Order: Ethyl Alcohol (ethanol); SPEC'M 11/19/16 22:35 Test: ETHYL ALCOHOL (ETHANOL); Value: 0.007; Range: 0.000-0.010; Units: %; Status: F Lab Order: Liver Profile; SPEC'M 11/19/16 22:35 Test: AST/SGOT; Value: 37; Range: 15-37; Units: U/L; Status: F Test: ALT/SGPT; Value: 59; Range: 12-78; Units: U/L; Status: F Test: ALKALINE PHOSPHATASE; Value: 78; Range: 45-117; Units: U/L; Status: F Test: BILIRUBIN,TOTAL; Value: 0.4; Range: 0.2-1.0; Units: MG/DL; Status: F Test: BILIRUBIN,DIRECT; Value: < 0.1; Range: 0.0-0.2; Units: MG/DL; Status: F Test: TOTAL PROTEIN; Value: 8.3; Range: 6.4-8.2; Abnormal: Above high normal; Units: GM/DL; Status: F Test: ALBUMIN; Value: 4.6; Range: 3.2-5.2; Units: GM/DL; Status: F Test: ALBUMIN/GLOBULIN RATIO; Value: 1.24; Range: 1.00-1.93; Status: F Lab Order: Salicylate Level; SPEC' 11/19/16 22:35 Test: SALICYLATE LEVEL; Value: < 1.7; Range: 5.0-30.0; Abnormal: Below low normal; Units: MG/DL; Status: F Lab Order: BASIC METABOLIC PROFILE; [facility] 11/19/16 22:35 Test: GLUCOSE, FASTING; Value: 96; Range: 70-105; Units: MG/DL; Status: F Test: BLOOD UREA NITROGEN; Value: 17; Range: 7-18; Units: MG/DL; Status: F Test: CREATININE FOR GFR; Value: 1.75; Range: 0.70-1.30; Abnormal: Above high normal; Units: MG/DL; Status: F Test: GLOMERULAR FILTRATION RATE; Value: 47.5; Range: >60; Abnormal: Below low normal; Status: F Test: SODIUM LEVEL; Value: 140; Range: 136-145; Units: MEQ/L; Status: F Test: POTASSIUM SERUM; Value: 4.4; Range: 3.5-5.1; Units: MEQ/L; Status: F Test: CHLORIDE LEVEL; Value: 103; Range: 98-107; Units: MEQ/L; Status: F Test: CARBON DIOXIDE LEVEL; Value: 30; Range: 21-32; Units: MEQ/L; Status: F Test: ANION GAP; Value: 7; Range: 8-16; Abnormal: Below low normal; Units: MEQ/L; Status: F Test: CALCIUM LEVEL; Value: 8.9; Range: 8.5-10.1; Units: MG/DL; Status: F Test Note: ; Units are mL/min/1.73 m2 Chronic Kidney Disease Staging per NKF: Stage I & II GFR >=60 Normal to Mildly Decreased Stage III GFR 30-59 Moderately Decreased Stage IV GFR 15-29 Severely Decreased Stage V GFR <15 Very Little GFR Left ESRD GFR <15 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 Lab Order: PLATELET ESTIMATE; [facility] 11/19/16 22:35 Test: PLATELET ESTIMATE; Value: NORMAL; Range: NORMAL; Status: F Lab Order: -Influenza A&B Rapid Antigen - Nose; 11/20/16 00:39 Test: INFLUENZA A RAPID SCR by ICA; Value: INFLUENZA A RESULTS NEGATIVE; Status: F Test: INFLUENZA A RAPID SCR by ICA; Value: Comments:; Status: F Test: INFLUENZA B RAPID SCR by ICA; Value: INFLUENZA B RESULTS NEGATIVE; Status: F Test Note: ; The Influenza test is a direct rapid immunoassay for the qualitative detection of Influenza viral antigen. Cell culture (Viral Culture) testing should be considered to confirm NEGATIVE results and to assist in detecting other viruses that can provide similar clinical symptoms. Please contact the lab within 24 [phone] if confirmatory testing is desired. Lab Order: THYROID PROFILE; [facility] 11/19/16 22:35 Test: T UPTAKE; Value: 32; Range: 33-40; Abnormal: Below low normal; Units: %; Status: F Test: THYROXINE (T4); Value: 8.7; Range: 4.5-12.0; Units: UG/DL; Status: F Test: FREE THYROXINE INDEX; Value: 2.8; Range: 1.4-3.8; Units: %; Status: F Test: THYROID STIMULATING HORMONE; Value: 1.570; Range: 0.358-3.740; Units: uIU/ML; Status: F Lab Order: CARDIAC MARKER PANEL; [facility] 11/20/16 23:48 Test: CPK CREATINE PHOSPHOKINASE; Value: 182; Range: 39-308; Units: U/L; Status: F Test: CK-MB VALUE MASS; Value: 1.1; Range: 0.0-3.6; Units: NG/ML; Status: F Test: MB/CK RELATIVE INDEX; Value: 0.60; Range: < OR =4; Status: F Test: TROPONIN I; Value: < 0.02; Range: < 0.10; Units: NG/ML; Status: F Test Note: ; DIAGNOSIS CRITERIA MMB ng/ml Relative Index (RI) NON-AMI < or = 5 N/A [place]ONE > 5 < or = 4 AMI > 5 > 4 Lab Order: CARDIAC MARKER PANEL; [facility] 11/20/16 09:17 Test: CPK CREATINE PHOSPHOKINASE; Value: 251; Range: 39-308; Units: U/L; Status: F Test: CK-MB VALUE MASS; Value: 1.5; Range: 0.0-3.6; Units: NG/ML; Status: F Test: MB/CK RELATIVE INDEX; Value: 0.59; Range: < OR =4; Status: F Test: TROPONIN I; Value: < 0.02; Range: < 0.10; Units: NG/ML; Status: F Test Note: ; DIAGNOSIS CRITERIA MMB ng/ml Relative Index (RI) NON-AMI < or = 5 N/A [place]ONE > 5 < or = 4 AMI > 5 > 4 Lab Order: CARDIAC MARKER PANEL; [facility] 11/20/16 17:41 Test: CPK CREATINE PHOSPHOKINASE; Value: 199; Range: 39-308; Units: U/L; Status: F Test: CK-MB VALUE MASS; Value: 1.0; Range: 0.0-3.6; Units: NG/ML; Status: F Test: MB/CK RELATIVE INDEX; Value: 0.50; Range: < OR =4; Status: F Test: TROPONIN I; Value: < 0.02; Range: < 0.10; Units: NG/ML; Status: F Test Note: ; DIAGNOSIS CRITERIA MMB ng/ml Relative Index (RI) NON-AMI < or = 5 N/A [place]ONE > 5 < or = 4 AMI > 5 > 4 Lab Order: COMPLETE BLOOD COUNT; [facility] 11/20/16 05:48 Test: WHITE BLOOD COUNT; Value: 13.1; Range: 4.0-10.0; Abnormal: Above high normal; Units: K/mm3; Status: F Test: RED BLOOD COUNT; Value: 4.57; Range: 4.30-6.10; Units: M/mm3; Status: F Test: HEMOGLOBIN; Value: 14.3; Range: 14.0-18.0; Units: g/dl; Status: F Test: HEMATOCRIT; Value: 44.5; Range: 42.0-52.0; Units: %; Status: F Test: MEAN CORPUSCULAR VOLUME; Value: 97.3; Range: 80.0-96.0; Abnormal: Above high normal; Units: fl; Status: F Test: MEAN CORPUSCULAR HEMOGLOBIN; Value: 31.2; Range: 27.0-33.0; Units: pg; Status: F Test: MEAN CORPUSCULAR HGB CONC; Value: 32.1; Range: 32.0-36.5; Units: g/dl; Status: F Test: RED CELL DISTRIBUTION WIDTH; Value: 12.7; Range: 11.5-14.5; Units: %; Status: F Test: PLATELET COUNT, AUTOMATED; Value: 330; Range: 150-450; Units: k/mm3; Status: F Lab Order: BASIC METABOLIC PROFILE; [facility] 11/20/16 05:48 Test: GLUCOSE, FASTING; Value: 117; Range: 70-105; Abnormal: Above high normal; Units: MG/DL; Status: F Test: BLOOD UREA NITROGEN; Value: 15; Range: 7-18; Units: MG/DL; Status: F Test: CREATININE FOR GFR; Value: 1.32; Range: 0.70-1.30; Abnormal: Above high normal; Units: MG/DL; Status: F Test: GLOMERULAR FILTRATION RATE; Value: > 60.0; Range: >60; Status: F Test: SODIUM LEVEL; Value: 140; Range: 136-145; Units: MEQ/L; Status: F Test: POTASSIUM SERUM; Value: 4.7; Range: 3.5-5.1; Units: MEQ/L; Status: F Test: CHLORIDE LEVEL; Value: 104; Range: 98-107; Units: MEQ/L; Status: F Test: CARBON DIOXIDE LEVEL; Value: 29; Range: 21-32; Units: MEQ/L; Status: F Test: ANION GAP; Value: 7; Range: 8-16; Abnormal: Below low normal; Units: MEQ/L; Status: F Test: CALCIUM LEVEL; Value: 8.3; Range: 8.5-10.1; Abnormal: Below low normal; Units: MG/DL; Status: F Test Note: ; Units are mL/min/1.73 m2 Chronic Kidney Disease Staging per NKF: Stage I & II GFR >=60 Normal to Mildly Decreased Stage III GFR 30-59 Moderately Decreased Stage IV GFR 15-29 Severely Decreased Stage V GFR <15 Very Little GFR Left ESRD GFR <15 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 Lab Order: RESPIRATORY PANEL; SPEC'M 11/20/16 00:39 Test: RESPIRATORY PANEL; Value: RP PANEL RESULT POSITIVE by PCR; Abnormal: Abnormal; Status: F Test: RESPIRATORY PANEL; Value: Comments:; Status: F Test: RESPIRATORY PANEL; Value: ORGANISM 1: CORONAVIRUS 229E; Status: F Test: RESPIRATORY PANEL; Value: CORONAVIRUS 229E; Status: F Test: RESPIRATORY PANEL; Value: [place] 229E 1 Coronaviruses are most commonly associated with; Status: F Test: RESPIRATORY PANEL; Value: [place] 229E 2 mild to moderate upper respiratory tract infections.; Status: F Test: RESPIRATORY PANEL; Value: [place] 229E 3 Coronaviruses have been associated with croup and; Status: F Test: RESPIRATORY PANEL; Value: [place]an 229E 4 exacerbation of asthma. Infections occur more often; Status: F Test: RESPIRATORY PANEL; Value: [place]an 229E 5 in the winter.; Status: F Test Note: ; This respiratory PCR panel detects Influenza A H1, H3 and 2009 H1 viruses, Influenza B virus, Respiratory syncytial virus, Human metapneumovirus, Parainfluenza virus 1, 2, 3 and 4, Adenovirus, Rhinovirus/Enterovirus, Coronavirus HKU1, NL63, OC43 and 229E, Bordetella pertussis, Mycoplasma pneumoniae and Chlamydia pneumoniae. Lab Order: COMPLETE BLOOD COUNT; SPEC'M 11/21/16 06:32 Test: WHITE BLOOD COUNT; Value: 17.0; Range: 4.0-10.0; Abnormal: Above high normal; Units: K/mm3; Status: F Test: RED BLOOD COUNT; Value: 4.78; Range: 4.30-6.10; Units: M/mm3; Status: F Test: HEMOGLOBIN; Value: 14.7; Range: 14.0-18.0; Units: g/dl; Status: F Test: HEMATOCRIT; Value: 45.4; Range: 42.0-52.0; Units: %; Status: F Test: MEAN CORPUSCULAR VOLUME; Value: 94.9; Range: 80.0-96.0; Units: fl; Status: F Test: MEAN CORPUSCULAR HEMOGLOBIN; Value: 30.6; Range: 27.0-33.0; Units: pg; Status: F Test: MEAN CORPUSCULAR HGB CONC; Value: 32.3; Range: 32.0-36.5; Units: g/dl; Status: F Test: RED CELL DISTRIBUTION WIDTH; Value: 12.6; Range: 11.5-14.5; Units: %; Status: F Test: PLATELET COUNT, AUTOMATED; Value: 336; Range: 150-450; Units: k/mm3; Status: F Lab Order: BASIC METABOLIC PROFILE; [facility] Test: GLUCOSE, FASTING; Value: 93; Range: 70-105; Units: MG/DL; Status: F Test: BLOOD UREA NITROGEN; Value: 8; Range: 7-18; Units: MG/DL; Status: F Test: CREATININE FOR GFR; Value: 0.84; Range: 0.70-1.30; Units: MG/DL; Status: F Test: GLOMERULAR FILTRATION RATE; Value: > 60.0; Range: >60; Status: F Test: SODIUM LEVEL; Value: 142; Range: 136-145; Units: MEQ/L; Status: F Test: POTASSIUM SERUM; Value: 3.9; Range: 3.5-5.1; Units: MEQ/L; Status: F Test: CHLORIDE LEVEL; Value: 107; Range: 98-107; Units: MEQ/L; Status: F Test: CARBON DIOXIDE LEVEL; Value: 27; Range: 21-32; Units: MEQ/L; Status: F Test: ANION GAP; Value: 8; Range: 8-16; Units: MEQ/L; Status: F Test: CALCIUM LEVEL; Value: 8.7; Range: 8.5-10.1; Units: MG/DL; Status: F Test Note: ; Units are mL/min/1.73 m2 Chronic Kidney Disease Staging per NKF: Stage I & II GFR >=60 Normal to Mildly Decreased Stage III GFR 30-59 Moderately Decreased Stage IV GFR 15-29 Severely Decreased Stage V GFR <15 Very Little GFR Left ESRD GFR <15 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 Radiology Order: EKG-ADULT Test: EKG-ADULT REASON FOR EXAMINATION: tachycardia; Stationary ECG Study; [facility] - ED; ; Test Date: 2016-11-19; Pat Name: ANA SEAMAN Department:; Room: [place] [address]; 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: 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; : 1980 Requested By: KRISTY THURMAN; Order Number: [id number] Reading MD: Sasha Pretty; Measurements; Intervals [place]; Rate: 135 P:; GA: 0 QRS: 37; QRSD: 87 T: 6; QT: 287; QTc: 431; Interpretive Statements; ATRIAL FIBRILLATION WITH RAPID VENTRICULAR RESPONSE; NONSPECIFIC T-WAVE ABNORMALITY; ABNORMAL RHYTHM ECG; PRIOR SINUS BRADYCARDIA 10/17/15; Electronically Signed On 11-20-2016 19:49:57 EST by Sasha Pretty; Radiology Order: Chest, 2 View (pa\\E\\lat) Test: Chest, 2 View (pa\\E\\lat) REASON FOR EXAMINATION: Cough; Clinical: Cough.; ; Technique: PA and lateral.; ; Findings: Bilateral lower lobe infiltrates compatible with acute pneumonia. No; effusion. No pneumothorax. Cardiac silhouette normal. Skeletal structures; intact.; ; Impression:; Lower lobe infiltrates compatible with acute pneumonia.; ; ; Signed by; Cristo Nance MD 11/20/2016 07:43 A; Outcome: 11/20 00:15 Decision to Hospitalize by Provider. cs11 00:41 Discharge Assessment: Patient awake, alert and oriented x 3. No cognitive and/or af2 functional deficits noted. Patient verbalized understanding of disposition instructions. patient administered narcotics - no. The following High Risk Discharge criteria are identified: None. Admitted to Med/Surg accompanied by tech, via stretcher, with oxygen, with chart. Condition: stable. No special radiology studies were completed. Property :Personal belongings accompany Pt. 11/21 18:12 Patient left the ED. [facility] Signatures: Dispatcher [employer] EDMS Izzy Acevedo, RN RN [facility] Massiel Chery, Reg Reg Amy PlattRN RN [id number] Brenda Boland Jennifer RN RN Amrit Sandhu [facility] Miriam Hennessy RN RN [id number] Kristy Thurman DO DO cs11 Verenice Dyer RN RN af2 Rabia Garcia, Reg Reg [id number] Stacy Dumont nb2 Letitia Owens,RN RN [email or web address] Corrections: (The following items were deleted from the chart) 11/19 23:18 23:13 COMPLETE BLOOD COUNT+LAB sent. [facility] EDAK 11/20 00:12 11/19 23:13 THYROID STIMULATING HORMONE+LAB sent. [facility] EDAK 11/20 07:53 07:46 BP 138 / 79; Pulse 130bpm; Resp 20bpm; Temp 99.1F Temporal; Pain 7/10; ja5 ja5 07:58 07:56 General: O2 sat was 91% on RA. 2L O2 NC placed on patient to increase O2 sat to ja5 96%.. ja5 Chart Complete MTDD
[2016-11-24] MEDS: LevoFLOXacin IV 750 MG in APPROPRIATE DILUENT 1 EA IV SCH (03:10)
[2016-11-24] MEDS: ACETAMINOPHEN TAB 650MG DOSE (2X325MG) PO PRN (03:21)
[2016-11-24] MEDS: HEPARIN SOD (PORCINE) 5000 UNITS/ML VIAL SC SCH (05:12)
[2016-11-24] MEDS: LORazepam 2 MG/ML VIAL (J2060) IV PRN ×2 (05:21→09:38)
[2016-11-24] MEDS: OXAZEPAM 10 MG CAP PO SCH (05:22)
[2016-11-24] MEDS: IBUPROFEN 400 MG TAB PO PRN (05:34)
[2016-11-24 06:31] LABS: MEAN CORPUSCULAR HEMOGLOBIN 31.1 pg (27.0-33.0); MEAN CORPUSCULAR VOLUME 94.2 fl (80.0-96.0); RED CELL DISTRIBUTION WIDTH 12.6 % (11.5-14.5); WHITE BLOOD COUNT 6.5 K/mm3 (4.0-10.0)
[2016-11-24 06:47] LABS: ANION GAP 8 MEQ/L (8-16); BLOOD UREA NITROGEN 17 MG/DL (7-18); CALCIUM LEVEL 8.9 MG/DL (8.5-10.1); CARBON DIOXIDE LEVEL 28 MEQ/L (21-32); CHLORIDE LEVEL 106 MEQ/L (98-107); CREATININE FOR GFR 1.18 MG/DL (0.70-1.30); GLOMERULAR FILTRATION RATE > 60.0 (>60); GLUCOSE, FASTING 90 MG/DL (70-105); POTASSIUM SERUM 3.7 MEQ/L (3.5-5.1); SODIUM LEVEL 142 MEQ/L (136-145)
[2016-11-24] MEDS ORDERED: diltiaZEM **CD** 180 MG CAP PO SCH (09:00)
--- NOTE | 2016-11-24 09:12 | IPN ---
DATE OF SERVICE: 11/23/2016 Mr. Storm is feeling quite well today. He has been out of bed, moving around. Still has a cough. He has not been febrile. He is tolerating a diet. Temperature this afternoon is 100, pulse 81, respiratory rate 18, blood pressure 155/86, 93% on room air. Intake and output (I and O) notable for a positive fluid balance of 2890. No bowel movements noted thus far today. He is awake, appropriately interactive, pleasantly conversant. I-E ratio is 1:3, somewhat diminished in the bases. No wheezes, rales, or rhonchi. Heart is in a regular rate and rhythm. Abdomen is soft, doughy, nontender. There is no tremor noted on examination. White cell count 6.9, hemoglobin 14.5, platelets of 376, creatinine is 1.06. My assessment is as follows: This is a 36-year-old with coronavirus being treated for community-acquired pneumonia and polysubstance abuse with withdrawal. My plan is as follows: 1. Infectious disease. The patient had right lower lobe infiltrate. Is being treated with quinolone. Was found to have coronavirus. Is again clinically improved. 2. The patient had new-onset atrial fibrillation noted during his stay, which has resolved. He was started on Cardizem. Apparently, as an outpatient, he had a history of hypertension, which he was supposed to be treated for. Today, we will switch his Cardizem to long-acting and continue to follow. His tachycardia was most likely related to his coronavirus and pneumonia, although the possibility of withdrawal was also considered. 3. The patient has history of polysubstance abuse. Will attempt to wean his Serax. The patient has requested a referral to inpatient rehabilitation. Discussed with patient and family services (PFS) in person today. Will await a plan. He may need to be discharged to home before he can attend inpatient rehabilitation, depending on his insurance and availability. 4. The patient has resolved acute renal failure. 5. The patient has appropriate deep venous thrombosis (DVT) prophylaxis.
[2016-11-24] MEDS: OMEPRAZOLE 20 MG CAP PO SCH (09:26)
[2016-11-24] MEDS: ASPIRIN 81 MG ENTERIC TAB PO SCH (09:26)
[2016-11-24] MEDS: ADDERALL 5 MG TAB PO SCH ×2 (09:26→12:42)
[2016-11-24 09:27] VITALS: BP 137/90
[2016-11-24] MEDS ORDERED: CARD120C3 PO (13:43)
[2016-11-24] MEDS ORDERED: LEVA500T PO (13:43)
--- NOTE | 2016-11-24 13:58 | DS.PDOC ---
Discharge Summary General Date of Admission Nov 21, 2016 at 11:04 Date of Discharge Nov 24, 2016 at 13:00 Discharge Summary CHIEF COMPLAINT: Cap;Acute Respiratory Failure W Hypoxia; Afib; Pneumonia; EtOH Withdrawal ADMISSION DIAGNOSES: 1. EtOH withdrawal 2. EtOH abuse 3. Afib 4. Pneumonia 5. Polysubstance abuse 6. Acute kidney injury 7. ADHD DISCHARGE DIAGNOSES: 1. EtOH withdrawal 2. EtOH abuse 3. Afib 4. Pneumonia 5. Polysubstance abuse 6. ADHD 7. Congestive Heart Failure - diastolic dysfunction 8. Non-compliance HISTORY OF PRESENT ILLNESS: Patient is a 36-year old male presented to the emergency department after being found unconscious and reportedly barely breathing by his . Patient's said that he had vomited and she called the ambulance. EMS found the patient, he did not have a pulse and was not breathing at that time. They gave him Narcan. Patient's says that the evening prior to presentation to the ED, he took 3-4 Xanax, 4 tramadol and 2 beers. After initially being evaluated in emergency department patient refused treatment and left AMA. Before physically leaving the hospital the patient's family convinced him to stay and patient came back in to emergency department. He is complaining of not feeling well, complaining of sinus pain and pressure and chest congestion. HOSPITAL COURSE: Patient was admitted for loss of consciousness, new onset afib and pneumonia as per bilateral lower lobe infiltrates on chest x-ray. Patient was started on antibiotics for his pneumonia. He was found to be in afib, 2d echocardiogram was obtained which did not reveal any valvular pathology, but indicate evidence for diastolic dysfunction. Patient also noted to be exhibiting sign and symptoms of alcohol withdrawal, treated with ativan as needed. Patient was motivated to participate with alcohol rehab, and a bed was available tomorrow 11/25/16 at noon. It was recommended patient remain inpatient until discharge tomorrow to rehab. Patient was not agreeable with remaining in the hospital. Risks of leaving the hospital against medical advice were explained at length to the patient including . Patient still refused ongoing medical care and left AMA. DISCHARGE MEDICATIONS: Please see below. ALLERGIES: Please see below. PHYSICAL EXAMINATION ON DISCHARGE: VITAL SIGNS: Please see below. GENERAL: NAD, anxious HEENT: NC/AT, EOMI, PERRL NECK: supple CARDIOVASCULAR EXAMINATION: +S1S2, irregularly irregular RESPIRATORY EXAMINATION: CTA B/L ABDOMINAL EXAMINATION: soft, NT, +BS, ND EXTREMITIES: no edema SKIN: no rashes NEUROLOGICAL EXAMINATION: no gross focal deficits PSYCHIATRIC EXAMINATION: AAOx3, anxious LABORATORY DATA: Please see below. IMAGIND echocardiogram VTE Prophylaxis ordered?: yes DISCHARGE CONDITION: guarded prognosis, patient has left against medical advice DISPOSITION: anticipating admission to inpatient alcohol rehab 11/25/16 ACTIVITY: as tolerated DIET: as tolerated ITEMS TO FOLLOWUP ON OUTPATIENT: 1. follow up with PCP in 1-5 days 2. Recommend follow up with cardiology in 1-5 days DISCHARGE PLAN AND INSTRUCTIONS: 1. Inpatient alcohol rehab as scheduled 11/25/16 2. medications as directed 3. please abstain from alcohol and illicit drug use TIME SPENT ON DISCHARGE: Greater than 30 minutes. Vital Signs/I&Os Vital Signs Date Time Temp Pulse Resp B/P Pulse Ox O2 Delivery O2 Flow Rate FiO2 11/24/16 09:27 203 137/90 11/23/16 14:00 100.0 18 93 Room Air I&O- Last 24 Hours up to 6 AM 11/24/16 05:59 Intake Total 270 ml Balance 270 ml Laboratory Data Labs 24H Laboratory Tests 2 11/24/16 06:04: Anion Gap 8, Blood Urea Nitrogen 17, Creatinine 1.18, Sodium Level 142, Potassium Level 3.7, Chloride Level 106, Carbon Dioxide Level 28, Calcium Level 8.9, Glomerular Filtration Rate > 60.0 CBC/BMP Laboratory Tests 11/24/16 06:04 Calcium Level 8.9, Red Blood Count 4.75, Mean Corpuscular Volume 94.2, Mean Corpuscular Hemoglobin 31.1, Mean Corpuscular Hemoglobin Concent 33.0, Red Cell Distribution Width 12.6 Microbiology Microbiology 11/19/16 Blood Culture - Preliminary, Resulted No Growth after 72 hours. All specime... 11/20/16 Respiratory Virus Panel (PCR) ([facility]) - Final, Complete Coronavirus 229E 11/20/16 Influenza Virus Type A Antigen - Final, Complete 11/20/16 Influenza Virus Type B Antigen - Final, Complete Medications Scheduled Alprazolam (Xanax) 1 Mg Tab 1 MG PO QID Amphetamine/Dextroamphetamine (Adderall 5 mg) 1 Tab Tab 20 MG PO BID Diltiazem Hcl (Cardizem Cd) 120 Mg Cap 120 MG PO DAILY Ergocalciferol (Vitamin D) 50,000 Unit Cap 50,000 UNIT PO 1XWK WEDNESDAY MORNINGS Levofloxacin Hemihydrate (Levaquin) 500 Mg Tab 500 MG PO DAILY Omeprazole (Omeprazole) 20 Mg Cap 20 MG PO DAILY Scheduled PRN (Exelderm) 1 % Cre 1 DOSE EXT BID PRN PRN ITCHING PLACES ON GROIN Betamethasone/Clotrimazole (Clotrimazole/Betamethason 1-0.05 %) 1 Dose/15 Gm Cream 1 DOSE TOP BID PRN PRN ITCHING PLACES ON GROIN Tramadol HCl (Tramadol HCl) 50 Mg Tab 50 MG PO QID PRN PRN PAIN Allergies Coded Allergies: No Known Allergies (Verified Allergy, Unknown, 07/18/08) MARISELA HAMILTON MD Nov 24, 2016 13:58
== END 2016-11-24 13:00 | disposition left against medical advice (07) | DRG 139 ==
LOC: M ED 22:13 → M ED INP 11-20 00:24 → OBSVTOIN 11-21 11:04 → M PCU 11-21 17:41 → M MS5PR 11-22 11:37
PROVIDERS: ADMIT Hospitalist; ATTEND Internal Medicine
DX: J18.9 Pneumonia, unspecified organism (principal); N17.9 Acute kidney failure, unspecified; I48.91 Unspecified atrial fibrillation; F10.10 Alcohol abuse, uncomplicated; K21.9 Gastro-esophageal reflux disease without esophagitis; B97.29 Other coronavirus as the cause of diseases classified elsewhere; F90.9 Attention-deficit hyperactivity disorder, unspecified type; I10 Essential (primary) hypertension; F17.210 Nicotine dependence, cigarettes, uncomplicated; F12.10 Cannabis abuse, uncomplicated; Z79.899 Other long term (current) drug therapy

== ENCOUNTER → 2017-05-21 | Outpatient (REF) | payer BC ==
[~2017-05-21] MED LIST: ADDE1TAB14 PO; CARD120C3 PO; CLOT1CRE71 TOP; LEVA1TAB2 PO; OMEP20CA3 PO; TRAM50TA2 PO; VITA1CAP40 PO; XANA1TAB2 PO; [UNRECOGNIZED DRUG - CODE] EXT
[2017-05-21 11:48] LABS: MEAN CORPUSCULAR HEMOGLOBIN 30.2 pg (27.0-33.0); MEAN CORPUSCULAR HGB CONC 33.5 g/dl (32.0-36.5); MEAN CORPUSCULAR VOLUME 90.2 fl (80.0-96.0); RED CELL DISTRIBUTION WIDTH 12.8 % (11.5-14.5)
[2017-05-21 12:20] LABS: ALBUMIN 4.4 GM/DL (3.2-5.2); ALBUMIN/GLOBULIN RATIO 1.29 (1.00-1.93); ALKALINE PHOSPHATASE 67 U/L (45-117); ALT/SGPT 55 U/L (12-78); ANION GAP 9 MEQ/L (8-16); AST/SGOT 19 U/L (15-37); BILIRUBIN,TOTAL 0.5 MG/DL (0.2-1.0); BLOOD UREA NITROGEN 20 MG/DL (7-18); CALCIUM LEVEL 9.5 MG/DL (8.5-10.1); CARBON DIOXIDE LEVEL 27 MEQ/L (21-32); CHLORIDE LEVEL 107 MEQ/L (98-107); CHOLESTEROL LEVEL 256 MG/DL (<200); CREATININE FOR GFR 1.17 MG/DL (0.70-1.30); FREE T4 1.04 NG/DL (0.76-1.46); GLOMERULAR FILTRATION RATE > 60.0 (>60); GLUCOSE, FASTING 96 MG/DL (70-105); POTASSIUM SERUM 4.6 MEQ/L (3.5-5.1); SODIUM LEVEL 143 MEQ/L (136-145); TOTAL PROTEIN 7.8 GM/DL (6.4-8.2); TRIGLYCERIDES LEVEL 76 MG/DL (<150)
== END ==
LOC: M SFHCPLAZ 08:22
PROVIDERS: ATTEND Family Medicine
DX: G47.33 Obstructive sleep apnea (adult) (pediatric) (principal); F32.9 Major depressive disorder, single episode, unspecified; I11.9 Hypertensive heart disease without heart failure

== ENCOUNTER → 2017-07-01 | Outpatient (CLI) | payer BC ==
--- NOTE | 2017-07-06 22:42 | SLEEPHOME ---
DATE OF PROCEDURE: 07/01/2017 REFERRING PHYSICIAN: Savanna Machado INTERPRETATION: Diagnostic home sleep testing was performed due to concern for the obstructive sleep apnea syndrome in this patient with a history of excessive somnolence and morning headaches. 9 hours and 59 minutes of data were reviewed. There were 7 hours and 59 minutes of time marked time in bed. During the interval marked time in bed, there were 133 respiratory events were identified of 10 seconds in duration or greater for a respiratory event index of 16.7. The events were primarily obstructive, however, significant occurrence of central and mixed apneas was also seen. A total of 59 central and mixed apneas were recorded. Pulse and saturation data were lost as the patient dislodged the pulse oximetry probe. Testing was performed in both the supine and nonsupine positions. IMPRESSION: Abnormal home sleep testing with repetitive respiratory events and a respiratory event index of 16.7 is consistent with the obstructive sleep apnea syndrome. RECOMMENDATION: Given the occurrence of central events referral for formal sleep evaluation and in laboratory pressure titration is indicated.
== END ==
LOC: M SLEEP HO 15:13
PROVIDERS: ATTEND Nurse Practitioner Adult Health
DX: G47.30 Sleep apnea, unspecified (principal)

== ENCOUNTER → 2017-07-02 | Outpatient (CLI) | payer BC ==
--- NOTE | 2017-07-02 23:26 | ECGEPIP ---
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 PATIENT THEN WAS IN ATRIAL FIBRILLATION WITH A RAPID VENTRICULAR RATE Electronically Signed On 07-02-2017 23:25:54 EDT by Larry Silvestre
== END ==
LOC: M EKG 08:07
PROVIDERS: ATTEND Physician Assistant
DX: S83.231D Complex tear of medial meniscus, current injury, right knee, subsequent encounter (principal)

== ENCOUNTER → 2017-08-30 | Outpatient (CLI) | payer BC ==
--- NOTE | 2017-08-31 23:14 | SLEEPCENT ---
DATE OF PROCEDURE: 08/30/2017 REFERRING PHYSICIAN: Savanna Machado Nocturnal polysomnography was performed for the titration of pressure therapy in this patient with a clinical diagnosis of obstructive sleep apnea syndrome, respiratory event index of 17. For testing, a ResMed Quattro full face mask of small size was used. 4 cm of water pressure was initially applied to the circuit and the lights were extinguished. 7 hours and 53 minutes of data were reviewed. There were 351 minutes of sleep identified. Sleep latency was prolonged at 50 minutes. Rapid eye movement (REM) latency was prolonged at 387 minutes. Sleep architecture showed poor progression but minimal fragmentation with a period of wake between 3:30 and 4:30 results in reduced sleep efficiency of 75.3%. The patient's electrocardiogram showed a sinus rhythm with premature ventricular contractions (PVCs). Average heart rate 65 beats per minute. EEG showed normal waveforms for awake and sleep. Respiratory events persisted prompting an increase in CPAP. The patient experienced hypoventilatory oxygen desaturations prompting the additional of supplemental oxygen. Best sleep was seen on a CPAP pressure of +8 with 2 liters of oxygen bled through the system to maintain adequate saturations. IMPRESSION: Obstructive sleep apnea syndrome (G47.33). RECOMMENDATION: Nightly use of pressure therapy 8 cm of water with 2 liters of oxygen bled through the system to address hypoventilatory oxygen desaturations.
== END ==
LOC: M SLEEP 19:49
PROVIDERS: ATTEND Nurse Practitioner Adult Health
DX: G47.33 Obstructive sleep apnea (adult) (pediatric) (principal)

== ENCOUNTER → 2018-08-08 | Outpatient (CLI) | payer BC | LOC: M WUC 10:01 | DX: R05 Cough (principal); R91.8 Other nonspecific abnormal finding of lung field | CPT/HCPCS: 71046 ==

== ENCOUNTER → 2018-08-23 | Outpatient (CLI) | payer BC | LOC: M RAD 13:58 | DX: N63.0 Unspecified lump in unspecified breast (principal) | CPT/HCPCS: 76642 ==

== ENCOUNTER → 2018-09-26 | Outpatient (CLI) | payer BC ==
[~2018-09-26] MED LIST changes: -VITA1CAP40 PO; +VITA50005 PO
--- NOTE | 2018-09-26 10:40 | REP ---
Clinical: Cough . Comparison: 08/08/2018 . Technique: PA and lateral. Findings: The mediastinum and cardiac silhouette are normal. The lung babin are clear and without acute consolidation, effusion, or pneumothorax. The skeletal structures are intact and normal. Impression: 1. No acute cardiopulmonary process. Electronically Signed by Cristo Nance MD 09/26/2018 10:31 A
== END ==
LOC: M WUC 10:20
PROVIDERS: ATTEND Physician Assistant
DX: R05 Cough (principal)